=== PATIENT | female | born 1945 | race Caucasian/White ===

== ENCOUNTER 2019-09-29 13:31 | Outpatient (CLI) | payer MEDICARE, OTHER, SELFPAY ==
--- NOTE | 2019-09-29 13:45 | CT_ITS ---
WS: [id number] CTA THORACIC TECHNIQUE: Contrast enhanced CTA of the thoracic aorta with coronal and sagittal reformatted images a nd maximum intensity projection (MIP) images. CLINICAL INFORMATION: THORACIC AORTIC ANEURYSM COMPARISON: CTA 05/23/2018 and 10/01/2017 DLP: 1067.[address] scans at [facility] use at least one of these dose optimization techniques: automat ed exposure control; mA and/or kV adjustment per patient size (includes targeted exams where dose is matched to clinical indication); or iterative reconstruction. FINDINGS: Incidental bovine arch configuration. No evidence of thoracic aortic dissection. Again seen is the as cending thoracic aortic aneurysm measuring 4.6 x 4.8 cm AP by transverse unchanged. Aortic arch and d escending thoracic aorta are normal. Stable large esophageal hiatal hernia. Cardiomegaly. Adrenal glands are normal. Noncontrast spleen ap pears unremarkable. Fatty atrophy of the pancreas. Coronary calcification. No mediastinal or hilar ly mphadenopathy. A few small nodules in the thyroid unchanged. CT/CT angio chest [id number] IMPRESSION: 1. Stable ascending thoracic aortic aneurysm measuring 4.6 x 4.8 cm unchanged. 2. Stable cardiomegaly. 3. Large esophageal hiatal hernia is unchanged. 4. A few small nodules in the thyroid appear unchanged.
[2019-09-29 14:33] LABS: Blood Urea Nitrogen 19 mg/dL (8-23)
[2019-09-29] MEDS: iodixanol 320 mg/mL 100mL Btl IV ×2 (14:58→15:00)
== END 2019-09-29 13:32 | disposition home or self-care (01) ==
LOC: RAD 13:35
PROVIDERS: Family Provider Registered Nurse; Visit Provider Internal Medicine Cardiovascular Disease
DX: I71.2 Thoracic aortic aneurysm, without rupture (principal); I51.7 Cardiomegaly; K44.9 Diaphragmatic hernia without obstruction or gangrene; E04.1 Nontoxic single thyroid nodule
CPT/HCPCS: 71275; 82565; 84520

== ENCOUNTER 2021-08-12 14:15 | Emergency (ER) | payer MEDICARE, OTHER, SELFPAY ==
--- NOTE | 2021-08-12 14:25 | CTR_ITS ---
PROCEDURE INFORMATION: Exam: CT Head Without Contrast Exam date and time: 08/12/2021 4:10 PM Age: 76 years old Clinical indication: Syncope and collapse; Patient HX: Syncope episode; Additional info: AMS TECHNIQUE: Imaging protocol: Computed tomography of the head without contrast. Radiation optimization: All CT scans at this facility use at least one of these dose optimization techniques: automated exposure control; mA and/or kV adjustment per patient size (includes targeted exams where dose is matched to clinical indication); or iterative reconstruction. COMPARISON: No relevant prior studies available. RADIATION DOSE METRICS: Total DLP (mGy-cm): 762.51 FINDINGS: Brain: Mild diffuse white matter disease likely reflecting chronic microvascular ischemic changes. Bilateral basal ganglia punctate microcalcifications, nonspecific. Cerebral ventricles: No ventriculomegaly. Paranasal sinuses: Visualized sinuses are unremarkable. No fluid levels. Mastoid air cells: Visualized mastoid air cells are well aerated. Bones/joints: Unremarkable. No acute fracture. Soft tissues: Unremarkable. CT/CT head wo con* [id number] IMPRESSION: Mild diffuse white matter disease likely reflecting chronic microvascular ischemic changes.
--- NOTE | 2021-08-12 14:25 | XR_ITS ---
WS: [id number] Exam: XR chest 1V portable [id number] Date/Time of Exam: 08/12/2021 2:32 PM Reason For Exam: sycnope Comparison 10/01/2017. The lungs are clear and fully expanded. Mild cardiac enlargement unchanged. Prominent hiatal hernia. The superior mediastinum is mildly prominent but unchanged in appearance. This may be secondary to ro tation. Regional bony structures are intact. XR/XR chest 1V portable [id number] IMPRESSION: 1. No acute cardiopulmonary finding. 2. Mild cardiac enlargement and prominent hiatal hernia.
--- NOTE | 2021-08-12 14:26 | ECG_ITS ---
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 Measurements Intervals [place] Rate: 95 P: 76 [place]: 137 QRS: 38 QRSD: 86 T: 43 QT: 363 QTc: 457 Interpretive Statements SINUS RHYTHM WITH FREQUENT VENTRICULAR PREMATURE COMPLEXES MODERATE ST DEPRESSION [0.05+ mV ST DEPRESSION] Compared to ECG 10/01/2017 16:22:44 Ventricular premature complex(es) now present ST (T wave) deviation now present Atrial fibrillation no longer present T-wave abnormality no longer present Electronically Signed On 08-12-2021 23:28:46 CDT by Carlitos Rose M.D. [id number]
--- NOTE | 2021-08-12 14:26 | CTR_ITS ---
PROCEDURE INFORMATION: Exam: CT Angiography Head With Contrast, Arteriography Exam date and time: 08/12/2021 4:15 PM Age: 76 years old Clinical indication: Syncope and collapse TECHNIQUE: Imaging protocol: Computed tomography angiography of the head with contrast. Exam focused on the arteries. 3D rendering (Not supervised by radiologist): MIP and/or 3D reconstructed images were created by the technologist. Radiation optimization: All CT scans at this facility use at least one of these dose optimization techniques: automated exposure control; mA and/or kV adjustment per patient size (includes targeted exams where dose is matched to clinical indication); or iterative reconstruction. Contrast material: OMNI 350; Contrast volume: 95 ml; Contrast route: INTRAVENOUS (IV); COMPARISON: 1. CT head wo con* [id number] 08/12/2021 4:[address] angio chest [id number] 09/29/2019 2:38 PM RADIATION DOSE METRICS: Total DLP (mGy-cm): 2104.63 FINDINGS: ANTERIOR CIRCULATION: Right internal carotid artery: Unremarkable. Intracranial segment is patent with no significant stenosis. No aneurysm. Right middle cerebral artery: Unremarkable. No occlusion or significant stenosis. No aneurysm. Right anterior cerebral artery: Unremarkable. No occlusion or significant stenosis. No aneurysm. Left internal carotid artery: Unremarkable. Intracranial segment is patent with no significant stenosis. No aneurysm. Left middle cerebral artery: Unremarkable. No occlusion or significant stenosis. No aneurysm. Left anterior cerebral artery: Unremarkable. No occlusion or significant stenosis. No aneurysm. POSTERIOR CIRCULATION: Right vertebral artery: Unremarkable. No occlusion or significant stenosis. No aneurysm. Left vertebral artery: Unremarkable. No occlusion or significant stenosis. No aneurysm. Basilar artery: Unremarkable. No occlusion or significant stenosis. No aneurysm. Right posterior cerebral artery: Unremarkable. No occlusion or significant stenosis. No aneurysm. Left posterior cerebral artery: Unremarkable. No occlusion or significant stenosis. No aneurysm. PROCEDURE INFORMATION: Exam: CT Angiography Neck With Contrast Exam date and time: 08/12/2021 4:15 PM Age: 76 years old Clinical indication: Syncope and collapse TECHNIQUE: Imaging protocol: Computed tomography angiography of the neck with contrast. 3D rendering (Not supervised by radiologist): MIP and/or 3D reconstructed images were created by the technologist. Radiation optimization: All CT scans at this facility use at least one of these dose optimization techniques: automated exposure control; mA and/or kV adjustment per patient size (includes targeted exams where dose is matched to clinical indication); or iterative reconstruction. Contrast material: OMNI 350; Contrast volume: 95 ml; Contrast route: INTRAVENOUS (IV); COMPARISON: 1. CT head wo con* [id number] 08/12/2021 4:[address] angio chest [id number] 09/29/2019 2:38 PM RADIATION DOSE METRICS: Total DLP (mGy-cm): 2104.63 FINDINGS: Right common carotid artery: No stenosis. No dissection or occlusion. Right internal carotid artery: No stenosis of the extracranial segment. No dissection or occlusion. Right external carotid artery: No occlusion or stenosis of the origin. Left common carotid artery: No stenosis. No dissection or occlusion. Left internal carotid artery: No stenosis of the extracranial segment. No dissection or occlusion. Left external carotid artery: No occlusion or stenosis of the origin. Right vertebral artery: No stenosis. No dissection or occlusion. Left vertebral artery: No stenosis. No dissection or occlusion. Aorta: Atherosclerotic calcification of the aortic arch. Thyroid: Multiple nodules in the thyroid gland with the largest measuring 9 mm in the right thyroid lobe. Soft tissues: Normal. No significant soft tissue swelling. Bones/joints: There is multilevel uncovertebral and facet hypertrophy with neural foramina narrowing. CT/CT angio headneck* [id number] IMPRESSION: No large vessel stenosis or occlusion. IMPRESSION: No stenosis or occlusion of the neck arteries. COMMENTS: Consistent with the [place] [employer]'s Incidental Findings Committee white paper (J Am Vinay Radiol 2015): In patients aged 35 years and older with an incidental thyroid nodule equal to or greater than 1.[address], MRI or extrathyroidal US, further evaluation with dedicated thyroid US is recommended for patients with normal life expectancy and without comorbidities. For smaller nodules without suspicious features, no further evaluation or follow up is recommended. REFERENCES: NASCET CRITERIA. The degree of internal carotid artery stenosis is based on NASCET criteria. Normal is no stenosis. Mild is less than 50% stenosis. Moderate is 50-69% stenosis. Severe is 70% to 99% stenosis. Total occlusion is no detectable patent lumen.
[2021-08-12 14:29] VITALS: BP 204/77; PULSE 105; RESP 18; TEMP 36.9; O2SAT 96
--- NOTE | 2021-08-12 15:05 | W.ED.GENADLT ---
HPI - General Adult General: Chief complaint: Syncope Stated complaint: SYNCOPE Time Seen by Provider: 08/12/21 14:25 History of Present Illness: HPI: [76]yo patient w/ hx of atrial fibrillation s/p prior ablations, HTN presenting after an episode of syncope lasting for 1-2 minutes which occurred at 12:27pm. Patient was at the flower shop she began feeling hot and nauseous and lightheaded. Patient then lost LOC briefly for few seconds. The incident was witnessed by the patient?s sister who slowly relayed the patient the ground. Patient could not recall the incident but denies any post-ictal confusion, tongue biting or bladder/bowel incontinence. Patient denies any prior hx of syncope in the past. No associated symptoms of chest pain, shortness of breath, palpitations or focal weakness right before the incident. No family hx of sudden cardiac or unexplained . Patient denies any prior history of MIs or cardiac stents. Denies any stroke-like symptoms during the episode when this happened. Patient tells me that yesterday she has had loose stool after eating peas and thinks that she may be dehydrated. She follows with cardiology and another hospital. Onset: 2 hrs and 30 minutes ago Duration: once Location: [place] Severity: moderate Associated symptoms: Deny chest pain, dyspnea, nausea, rash, palpitations or vomiting Review of Systems Const: Denies: fever(s) or chills Eyes: Denies: change in vision ENMT: Denies: mouth pain Card: Denies: chest pain or palpitations Resp: Denies: dyspnea or non-productive cough GI: Denies: abdominal pain, nausea, vomiting or diarrhea : Denies: dysuria Musc: Denies: extremity pain Skin/Breast: Denies: rash or new lesions Neuro: Reports: other (+syncope); Denies: weakness in extremities Psych: Reports: other (Normal mood) Joo/Lymph: Denies: easy bruising PFSH ED PFSH: Medical History (Updated 08/12/21 @ 19:09 by Clyde Ni MD) Afib Chronic lumbar pain Essential hypertension Surgical History History of cardiac radiofrequency ablation History of knee surgery History of right hip replacement October 2018 Social History Smoking and tobacco status: never smoked Alcohol intake: never Physical Exam Const: COMMON NORMALS: alert HENMT: COMMON NORMALS: atraumatic HEAD & SCALP: atraumatic MOUTH: moist mucous membranes not abnormal Eye: COMMON NORMALS: EOMs intact bilaterally and conjunctivae normal CONJUNCTIVA: Yes conjunctivae normal Neck/C-Spine: COMMON NORMALS: full ROM and supple Resp: COMMON NORMALS: normal respiratory effort and clear to auscultation bilaterally AUSCULTATION: clear to auscultation bilaterally Cardio: OTHER: +Irregular irregular tachycardia GI: COMMON NORMALS: Soft to palpation and non-tender PALPATION: Yes Soft to palpation Extremity: COMMON NORMALS: full ROM Neuro: SENSORIUM/ORIENTATION: Yes alert MOTOR EXAM: No Abnormal motor strength present and Other motor observations present (no focal motor deficits) OTHER: Mental status? Awake, alert, and oriented to self, year, month, location, and situation.? Following simple axial and appendicular commands.? Has appropriate fund of knowledge, comprehension, and insight.? Able to recall and understands pertinent aspects of medical history and current treatment status.? ? Language? Speech is fluent without word-finding difficulties.? Intact naming, expression, corporate receptionist, and repetition.? ? Cranial nerves? 2,3,4,6: PERRL, EOMI with no nystagmus. 5: Intact sensation to light touch, symmetric? 7: Smile symmetrical, no facial droop.? 8: Hearing grossly intact.? 9,10: Normal palate movement.? 11: Normal strength in trapezius bilaterally 12: Tongue protrudes midline.? ? Motor examination? Normal bulk & tone. Strength as follows (R/L): Delts (5/5), Biceps (5/5), Triceps (5/5), Wrist ext (5/5), hip flexors (5/5), plantarflexors (5/5), dorsiflexors (5/5). ? Sensation? Light Touch: Grossly intact and equal in upper and lower extremities bilaterally? Romberg: Negative.? Distal joint position sense intact ? Coordination? Wdtvod-ss-suga-finger movements intact without dysmetria or past-pointing.? Rapid fingertaps: preserved amplitude without decriment.? No tremor, myoclonus or truncal ataxia.? ? Gait/stance? Steady, normal narrow base gait with appropriate arm swing and turning.? Tandem gait without hesitation or loss of balance. Psych: COMMON NORMALS: speech normal SPEECH: Yes normal speech MOOD & AFFECT: Yes euthymic mood Course Vital Signs: Vital signs: Vital Signs Temperature 98.4 F 08/12/21 14:29 Pulse Rate 84 08/12/21 15:15 Respiratory Rate 18 08/12/21 14:29 Blood Pressure 197/124 08/12/21 19:08 Pulse Oximetry 96 08/12/21 19:08 MDM - General Adult Medical Decision Making [76]yo patient w/ hx of HTN, afib s/p ablation presenting to the ED with Syncope. No association with chest pain, dyspnea, palpitations, or focal neurological deficits. HDS Neuro intact. Fingerstick wnl. Given history, exam and workup, presentation not consistent with seizures given a short time course, no postictal state, no seizure activity. Low suspicion for acute neurologic catastrophes to include ICH given lack of trauma, risk factors for bleeding diathesis, or neurogenic causes of syncope. Low suspicion for vascular catastrophes to include PE, thoracic aortic dissection, AAA rupture. Workup: EKG, CBC, CMP, Lipase, Troponin x 2, EKG x 2, CT head, CTA head/neck Intervention: Serial reevaluation, telemetry, PO challenge, IVF Findings: EKG: No e/o STEMI. No evidence of Brugada?s sign, delta wave, epsilon wave, significantly prolonged QTc, HOCM or malignant arrhythmia. Given age and comorbidities, performed shared decision making with patient would like to stay in the hospital for full cardiac evaluation for syncope. Patient still observed to have frequent PVCs. Atrial fibrillation. No signs of VT/Vfib. Disposition: admission Lab Data : 08/12/21 15:05 08/12/21 15:05 Radiology Impressions Chest X-Ray 08/12/21 14:25 IMPRESSION: 1. No acute cardiopulmonary finding. 2. Mild cardiac enlargement and prominent hiatal hernia. Head CT 08/12/21 14:25 IMPRESSION: Mild diffuse white matter disease likely reflecting chronic microvascular ischemic changes. Head/Neck CTA 08/12/21 14:26 IMPRESSION: No large vessel stenosis or occlusion. IMPRESSION: No stenosis or occlusion of the neck arteries. COMMENTS: Consistent with the [employer] [place] [employer]'s Incidental Findings Committee white paper (J Am Vinay Radiol 2015): In patients aged 35 years and older with an incidental thyroid nodule equal to or greater than 1.[address], MRI or extrathyroidal US, further evaluation with dedicated thyroid US is recommended for patients with normal life expectancy and without comorbidities. For smaller nodules without suspicious features, no further evaluation or follow up is recommended. REFERENCES: NASCET CRITERIA. The degree of internal carotid artery stenosis is based on NASCET criteria. Normal is no stenosis. Mild is less than 50% stenosis. Moderate is 50-69% stenosis. Severe is 70% to 99% stenosis. Total occlusion is no detectable patent lumen. Laboratory Results WBC 8.6 10^3/uL (4.0-10.0) 08/12/21 15:05 RBC 4.50 10^6/uL (4.1-5.3) 08/12/21 15:05 Hgb 13.3 g/dL (11.5-15.3) 08/12/21 15:05 Hct 40.7 % (37.0-47.0) 08/12/21 15:05 MCV 90.4 fl (81-99) 08/12/21 15:05 MCH 29.6 pg (28.0-34.0) 08/12/21 15:05 MCHC 32.7 g/dL (30.0-36.0) 08/12/21 15:05 RDW 13.2 % (12.1-15.1) 08/12/21 15:05 Plt Count 258 10^3/cmm (130-400) 08/12/21 15:05 MPV 11.7 fL (7.4-10.4) H 08/12/21 15:05 Neut % (Auto) 80.4 % 08/12/21 15:05 Lymph % (Auto) 11.9 % 08/12/21 15:05 Blanco % (Auto) 5.9 % 08/12/21 15:05 Eos % (Auto) 0.8 % 08/12/21 15:05 Baso % (Auto) 0.8 % 08/12/21 15:05 Neut # (Auto) 6.92 10^3/uL (1.8-7.7) 08/12/21 15:05 Lymph # (Auto) 1.0 10^3/uL (0.8-4.8) 08/12/21 15:05 [place]anco # (Auto) 0.5 10^3/uL (0.2-0.9) 08/12/21 15:05 Eos # (Auto) 0.1 10^3/uL (0.0-0.8) 08/12/21 15:05 Baso # (Auto) 0.1 10^3/uL (0.0-0.1) 08/12/21 15:05 Nucleated RBC % (auto) 0 % 08/12/21 15:05 Nucleated RBCs # 0.0 /100WBC 08/12/21 15:05 Sodium 135 mmol/L (136-145) L 08/12/21 15:05 Potassium 4.5 mmol/L (3.5-5.1) 08/12/21 15:05 Chloride 99 mmol/L (98-107) 08/12/21 15:05 Carbon Dioxide 24 mmol/L (22-29) 08/12/21 15:05 Anion Gap 16.5 (5-19) 08/12/21 15:05 BUN 21 mg/dL (8-23) 08/12/21 15:05 Creatinine 0.8 mg/dL (0.5-0.9) 08/12/21 15:05 GFR Calculation Not Reportable 08/12/21 15:05 Glucose 122 mg/dL (65-115) H 08/12/21 15:05 Calculated Osmolality 284 mOsm/kg (285-295) L 08/12/21 15:05 Calcium 8.6 mg/dL (8.5-10.5) 08/12/21 15:05 Magnesium 2.3 mg/dL (1.7-2.3) 08/12/21 15:05 Total Bilirubin 0.5 mg/dL (0.15-1.2) 08/12/21 15:05 AST 17 U/L (0-32) 08/12/21 15:05 ALT 12 U/L (0-33) 08/12/21 15:05 Alkaline Phosphatase 154 IU/L (35-105) H 08/12/21 15:05 Troponin T Baseline 11 ng/L (0-10) H 08/12/21 15:05 Troponin T 120 Minute 10.26 ng/L (0-10) H 08/12/21 17:08 Delta Troponin T -0.74 ABS# (0-10) L 08/12/21 17:08 Total Protein 7.4 g/dL (6.6-8.7) 08/12/21 15:05 Albumin 4.5 g/dL (3.5-5.2) 08/12/21 15:05 Globulin 2.9 g/dL (1.3-4.6) 08/12/21 15:05 Lipase 9 U/L (13-60) L 08/12/21 15:05 TSH 1.76 uIU/mL (0.27-4.20) 08/12/21 15:05 Urine Color Yellow (Yellow) 08/12/21 16:04 Urine Appearance Sl hazy (CLEAR) 08/12/21 16:04 Urine pH 5 (5-7) 08/12/21 16:04 Ur Specific [place] 1.015 (1.005-1.030) 08/12/21 16:04 Urine Protein Neg (Negative) 08/12/21 16:04 Urine Glucose (UA) Norm (Normal) 08/12/21 16:04 Urine Ketones Negative (Negative) 08/12/21 16:04 Urine Blood Neg (Negative) 08/12/21 16:04 Urine Nitrate Negative (Negative) 08/12/21 16:04 Urine Bilirubin Neg (Negative) 08/12/21 16:04 Urine Urobilinogen Norm mg/dL (Negative) 08/12/21 16:04 Ur Leukocyte Esterase 1+ (Negative) H 08/12/21 16:04 Urine RBC 0-4 /hpf (0-2) H 08/12/21 16:04 Urine WBC 5-10 /hpf (0-5) H 08/12/21 16:04 Ur Squamous Epith Cells 0-4 /hpf (0-5) H 08/12/21 16:04 Amorphous Sediment Not Reportable 08/12/21 16:04 Urine Bacteria Trace /hpf (NONE) 08/12/21 16:04 Discharge Plan Discharge Patient Disposition: Admitted As Inpatient Clinical Impression: Syncope and collapse Condition: Stable Discharge Diet: Advance as tolerated Discharge Activity: Increase activity as tolerated Coding Level of Care Code ED Instrument Operator for Chg Fwd Exam Comprehensive
[2021-08-12 15:15] VITALS: PULSE 84
[2021-08-12 15:22] LABS: Basophils # 0.1 10^3/uL (0.0-0.1); Basophils % 0.8 %; Eosinophils # 0.1 10^3/uL (0.0-0.8); Eosinophils % 0.8 %; Hematocrit 40.7 % (37.0-47.0); Hemoglobin 13.3 g/dL (11.5-15.3); Lymphocytes % 11.9 %; Mean Corpuscular HGB Conc 32.7 g/dL (30.0-36.0); Mean Corpuscular Hemoglobin 29.6 pg (28.0-34.0); Mean Corpuscular Volume 90.4 fl (81-99); Mean Platelet Volume 11.7 fL (7.4-10.4); Monocytes # 0.5 10^3/uL (0.2-0.9); Monocytes % 5.9 %; Neutrophils # 6.92 10^3/uL (1.8-7.7); Neutrophils % 80.4 %; Nucleated Red Blood Cells % 0 %; Platelet Count 258 10^3/cmm (130-400); Red Cell Distribution Width 13.2 % (12.1-15.1); White Blood Count 8.6 10^3/uL (4.0-10.0)
[2021-08-12 15:46] LABS: Alanine Aminotransferase 12 U/L (0-33); Albumin Level 4.5 g/dL (3.5-5.2); Alkaline Phosphatase 154 IU/L (35-105); Anion Gap 16.5 (5-19); Aspartate Amino Transferase 17 U/L (0-32); Blood Urea Nitrogen 21 mg/dL (8-23); Calcium 8.6 mg/dL (8.5-10.5); Carbon Dioxide 24 mmol/L (22-29); Chloride 99 mmol/L (98-107); Globulin 2.9 g/dL (1.3-4.6); Glucose 122 mg/dL (65-115); Lipase 9 U/L (13-60); Magnesium 2.3 mg/dL (1.7-2.3); Osmolality Calculated 284 mOsm/kg (285-295); Potassium 4.5 mmol/L (3.5-5.1); Sodium 135 mmol/L (136-145); Total Bilirubin 0.5 mg/dL (0.15-1.2); Total Protein 7.4 g/dL (6.6-8.7); Troponin(5th) Baseline 11 ng/L (0-10)
[2021-08-12] MEDS: iohexol 350 mg/mL 100 mL Btl IV (16:14)
--- NOTE | 2021-08-12 16:26 | ECG_ITS ---
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 Measurements Intervals [place] Rate: 91 P: 64 AL: 139 QRS: 32 QRSD: 79 T: 44 QT: 359 QTc: 443 Interpretive Statements SINUS RHYTHM Compared to ECG 08/12/2021 14:31:46 Ventricular premature complex(es) no longer present ST (T wave) deviation no longer present Electronically Signed On 08-12-2021 23:34:26 CDT by Carlitos Rose M.D. [id number]
[2021-08-12 17:13] LABS: Bilirubin Urine Neg (Negative); Blood Urine Neg (Negative); Glucose Urine UA Norm (Normal); Ketones Urine Negative (Negative); Nitrate Urine Negative (Negative); Protein Urine Neg (Negative); Specific Gravity, Urine 1.015 (1.005-1.030); Urine Appearance SL Hazy (CLEAR); Urine Color Yellow (Yellow); Urobilinogen Urine Norm (Negative); pH Urine 5 (5-7)
[2021-08-12 17:14] LABS: Add Urine Culture? No; Add Urine Microscopic? YES; Bacteria Urine TRACE /hpf; Leukocyte Esterase Urine 1+ (Negative); RBC Urine 0-4 /hpf (0-2); Squamous Epithelial Cell Urine 0-4 /hpf (0-5)
[2021-08-12 17:39] LABS: Troponin 5 2HR 10.26 ng/L (0-10)
[2021-08-12 17:44] LABS: Troponin 5 2HR Delta -0.74 ABS# (0-10)
[2021-08-12 19:08] VITALS: BP 197/124; O2SAT 96
--- NOTE | 2021-08-12 19:09 | PM.HP ---
Providers/Chief Complaint Admitting Physician: Zac Car MD Primary Care Provider: ABA Emery Chief Complaint: SYNCOPE History of Present Illness Teresa Cueva is a 76 year old female who has history of normal ventricular systolic function EF 60%, chronic atrial fibrillation, thoracic aortic aneurysm, anemia, diverticulosis, moderate mitral valve regurgitation presented after 1 syncopal event. Medications/Allergies Home Medications Medication Instructions Recorded Confirmed Last Taken Type ibuprofen 200 mg capsule 400 mg PO TID PRN cap 10/26/20 08/12/21 08/12/21 History losartan 25 mg tablet 25 mg PO DAILY 08/12/21 08/12/21 08/12/21 History Allergies Allergy/AdvReac Type Severity Reaction Status Date / Time diltiazem Allergy ADR-Dizzine Verified 08/12/21 17:10 ss dofetilide [From Tikosyn] Allergy nausea Verified 08/12/21 17:10 hydrocodone Allergy nausea Verified 08/12/21 17:10 metoprolol Allergy ADR-Dizzine Verified 08/12/21 17:10 ss oxycodone Allergy nausea Verified 08/12/21 17:10 promethazine [From Phenergan] Allergy ADR-Dizzine Verified 08/12/21 17:10 ss tramadol Allergy nausea Verified 08/12/21 17:10 PFSH Acute PFSH: Medical History (Updated 08/12/21 @ 19:09 by Clyde Ni MD) Afib Chronic lumbar pain Essential hypertension Surgical History History of cardiac radiofrequency ablation History of knee surgery History of right hip replacement October 2018 Social History Smoking and tobacco status: never smoked Alcohol intake: never Vitals/I&O/Wt Last Vital Signs Temp 98.4 F 08/12/21 14:29 Pulse 84 08/12/21 15:15 Resp 18 08/12/21 14:29 BP 204/77 08/12/21 14:29 Pulse Ox 96 08/12/21 14:29 Data : 08/12/21 15:05 08/12/21 15:05 A&P Assessment and plan (1) Syncope and collapse: Status: Acute Coding Level of Care Code Acute Position Description Manager for Chg Fwd Diagnoses Syncope and collapse R57
[2021-08-12 19:12] LABS: Thyroid Stimulating Hormone 1.76 uIU/mL (0.27-4.20)
--- NOTE | 2021-08-15 09:46 | DCPLANNER ---
Addendum entered by Machelle Gómez 08/16/21 08:28: manager business management called patient to give patient appointment information, patient informed director case management that she did not want this appointment due to seeing her heart care physician. manager business management notified [facility] to cancel this appointment. Original Note: manager business management had message to schedule a follow up appointment for patient with [facility]. manager business management sent patients information to the front office staff at [facility]. Patients information will be printed and reviewed. Clinic will call patient with appointment information.
== END 2021-08-12 20:12 | disposition admitted as inpatient to this hospital (09) ==
LOC: ER 18:04 → MEDSURG 18:50
PROVIDERS: Family Medicine; Emergency Provider Emergency Medicine; PCP Registered Nurse
DX: R55 Syncope and collapse (principal); I48.91 Unspecified atrial fibrillation; I10 Essential (primary) hypertension
CPT/HCPCS: 70450; 70496; 70498; 71045; 80053; 81001; 83690; 83735; 84443; 84484; 85025; 93005; 99284; Q9967

== ENCOUNTER 2021-08-31 12:10 | Outpatient (CLI) | payer MEDICARE, SELFPAY ==
--- NOTE | 2021-08-31 13:00 | MR_ITS ---
WS: [id number] MRI LUMBAR SPINE NONCONTRAST TECHNIQUE: Sagittal T1, T2 and STIR imaging. Axial T1 and T2 imaging. CLINICAL INFORMATION: M51.37 - Other intervertebral disc degeneration, lumbosac... COMPARISON: MRI FINDINGS: Mild lumbar curve. No acute compression. Slight anterolisthesis L2 on L3, L3 on L4 and L4 on L5. L1-L2: Normal. L2-L3: Slight anterolisthesis. Mild annular bulging. Mild facet arthropathy. Spinal canal and foramen are patent. L3-L4: Slight anterolisthesis. Slight disc bulging. Mild central canal stenosis. Moderate facet arthr opathy. Foramen are patent. L4-L5: Slight anterolisthesis L4 on L5. Mild disc bulging with slight impingement on the RIGHT subart icular recess and traversing RIGHT L5 nerve root. Mild central canal stenosis. This is progressed com pared to 2017. Moderate facet arthropathy. Mild RIGHT foraminal narrowing. LEFT foramen is patent. L5-S1: Disc desiccation. Spinal canal and foramen are patent. Mild facet arthropathy. Visualized pelvic bony structures: Normal. Paravertebral soft tissues: Normal. Moderate thoracic kyphosis. Incidental hemangiomas in the mid thoracic spine. MR/MR lumbar spine wo con* [id number] IMPRESSION: 1. Mild lumbar curve. No acute compression. Slight anterolisthesis L2 on L3, L 3 on L4 and L4 on L5. 2. Mild central canal stenosis L3-L4 due to disc bulging with facet arthropath y and slight anterolisthesis. 3. Disc bulging L4-L5 with impingement RIGHT subarticular recess and traversin g RIGHT L5 nerve root. Mild central canal stenosis. This is progressed compared to 2017. 4. Mild RIGHT foraminal narrowing L4-L5 with contact of the exiting RIGHT L4 n erve root. Recommend correlation for RIGHT L4 nerve root symptoms. 5. Mild facet arthropathy L3-L4 and moderate facet arthropathy L4-L5.
== END 2021-08-31 12:11 | disposition home or self-care (01) ==
LOC: RAD 12:13
PROVIDERS: PCP Registered Nurse; Visit Provider Registered Nurse
DX: M51.37 Other intervertebral disc degeneration, lumbosacral region (principal); G89.29 Other chronic pain; M54.50 Low back pain, unspecified; M51.16 Intervertebral disc disorders with radiculopathy, lumbar region; M47.896 Other spondylosis, lumbar region
CPT/HCPCS: 72148

== ENCOUNTER → 2021-09-28 13:50 | Outpatient (BNVA) | payer MEDICARE, SELFPAY | PROVIDERS: PCP Registered Nurse; Visit Provider Anesthesiology Pain Medicine | DX: G89.29 Other chronic pain (principal); M48.061 Spinal stenosis, lumbar region without neurogenic claudication; M51.37 Other intervertebral disc degeneration, lumbosacral region; M47.816 Spondylosis without myelopathy or radiculopathy, lumbar region; M79.604 Pain in right leg; M79.605 Pain in left leg | CPT/HCPCS: 99205 ==

== ENCOUNTER → 2021-10-19 13:30 | Outpatient (BNVA) | payer MEDICARE, SELFPAY | PROVIDERS: PCP Registered Nurse; Visit Provider Anesthesiology Pain Medicine | DX: G89.29 Other chronic pain (principal); M47.816 Spondylosis without myelopathy or radiculopathy, lumbar region | CPT/HCPCS: 64493; 64494; 64495; J3490 ==

== ENCOUNTER → 2021-11-02 13:26 | Outpatient (BNVA) | payer MEDICARE, SELFPAY | PROVIDERS: PCP Registered Nurse; Visit Provider Anesthesiology Pain Medicine | DX: G89.29 Other chronic pain (principal); M47.816 Spondylosis without myelopathy or radiculopathy, lumbar region | CPT/HCPCS: 64493; 64494; 64495; J3490 ==

== ENCOUNTER → 2021-11-16 08:57 | Outpatient (BNVA) | payer MEDICARE, SELFPAY | PROVIDERS: PCP Registered Nurse; Visit Provider Anesthesiology Pain Medicine | DX: M79.604 Pain in right leg (principal); M79.605 Pain in left leg; G89.29 Other chronic pain; M48.061 Spinal stenosis, lumbar region without neurogenic claudication; M51.37 Other intervertebral disc degeneration, lumbosacral region; M47.816 Spondylosis without myelopathy or radiculopathy, lumbar region | CPT/HCPCS: 99214 ==

== ENCOUNTER → 2021-12-05 12:28 | Outpatient (BNVA) | payer MEDICARE, SELFPAY | PROVIDERS: PCP Registered Nurse; Visit Provider Anesthesiology Pain Medicine | DX: G89.29 Other chronic pain (principal); M47.816 Spondylosis without myelopathy or radiculopathy, lumbar region | CPT/HCPCS: 64635; 64636; J1030 ==

== ENCOUNTER → 2021-12-19 11:49 | Outpatient (BNVA) | payer MEDICARE, SELFPAY | PROVIDERS: PCP Registered Nurse; Visit Provider Anesthesiology Pain Medicine | DX: G89.29 Other chronic pain (principal); M47.816 Spondylosis without myelopathy or radiculopathy, lumbar region; E11.9 Type 2 diabetes mellitus without complications | CPT/HCPCS: 36416; 64635; 64636; 82962; J1030 ==

== ENCOUNTER → 2022-01-03 10:20 | Outpatient (BNVA) | payer MEDICARE, SELFPAY | PROVIDERS: PCP Registered Nurse; Visit Provider Anesthesiology Pain Medicine | DX: G89.29 Other chronic pain (principal); M48.061 Spinal stenosis, lumbar region without neurogenic claudication; M51.37 Other intervertebral disc degeneration, lumbosacral region; M47.816 Spondylosis without myelopathy or radiculopathy, lumbar region; M79.604 Pain in right leg; M79.605 Pain in left leg | CPT/HCPCS: 99214 ==

== ENCOUNTER 2022-01-19 08:59 | Outpatient (CLI) | payer MEDICARE, SELFPAY ==
--- NOTE | 2022-01-19 09:09 | CT_ITS ---
WS: [id number] CTA THORACIC AORTA WITH AND WITHOUT CONTRAST. HISTORY: THORACIC AORTIC ANEURYSM TECHNIQUE: CT imaging of the thorax is performed with and without contrast. After noncontrast imaging is performed, CT angiogram is performed during injection of Omnipaque 350; 95 mL IV.. Sagittal and c oronal reconstructions, sagittal and coronal MIP imaging is submitted. All CT scans at [facility] use at least one of these dose optimization techniques: automated exposure control; mA and/or kV adjustment per patient size (includes targeted exams where dose is matched to clinical indication); or iterative reconstruction. DLP: 1124.90 mGy.cm COMPARISON: 09/29/2019 Good opacification of the thoracic aorta. Aneurysmal dilatation of the ascending aorta is stable. Max imum diameter is 4.6 x 4.8 cm. No significant increase in size of the dilatation. Dilatation returns to normal alignment of the arch and descending aorta. There is moderately calcified plaque within the wall and intimal thickening. No dissection. Origin of the great vessels from the aortic arch is nega tive for significant stenosis. Bovine arch formation. Mild plaque at the origins of the arteries. Pul monary artery size is mildly prominent. No filling defects. Rapid tapering of the pulmonary arteries suggesting pulmonary hypertension. Markedly enlarged heart. LEFT atrial enlargement with a diameter of 5.7 cm. No definite RIGHT heart s train. No pericardial or pleural effusions. No pulmonary mass or nodules. No mediastinal or hilar anupam nopathy. Very large hiatal hernia. Stomach is essentially intrathoracic. Visualized adrenal glands are negative. Atherosclerosis continues into the suprarenal aorta. Visualiz ed colon contains diverticula. No acute diverticulitis. Increased thoracic kyphosis with degenerative spondylitic changes in the thoracic spine. CT/CT angio chest [id number] IMPRESSION: 1. Stable ascending thoracic aortic aneurysm at 4.6 x 4.8 cm. No increase in s ize. No dissection. 2. Pulmonary hypertension with rapid tapering of the pulmonary arteries. 3. Markedly enlarged heart. 4. Large hiatal hernia.
[2022-01-19 10:01] LABS: Blood Urea Nitrogen 20 mg/dL (8-23)
[2022-01-19] MEDS: iohexol 350 mg/mL 100 mL Btl IV (10:16)
== END 2022-01-19 09:00 | disposition home or self-care (01) ==
LOC: RAD 08:59
PROVIDERS: PCP Registered Nurse; Visit Provider Internal Medicine Cardiovascular Disease
DX: I71.2 Thoracic aortic aneurysm, without rupture (principal); I27.20 Pulmonary hypertension, unspecified; K44.9 Diaphragmatic hernia without obstruction or gangrene; I51.7 Cardiomegaly
CPT/HCPCS: 71275; 82565; 84520

== ENCOUNTER → 2022-01-25 13:59 | Outpatient (BNVA) | payer MEDICARE, SELFPAY | PROVIDERS: PCP Registered Nurse; Visit Provider Podiatrist Foot & Ankle Surgery | DX: M20.11 Hallux valgus (acquired), right foot (principal); L84 Corns and callosities; M20.41 Other hammer toe(s) (acquired), right foot | CPT/HCPCS: 28010; 28011; 99204 ==

== ENCOUNTER → 2022-02-01 14:55 | Outpatient (BNVA) | payer MEDICARE, SELFPAY | PROVIDERS: PCP Registered Nurse; Visit Provider Podiatrist Foot & Ankle Surgery | DX: M20.41 Other hammer toe(s) (acquired), right foot (principal); M20.11 Hallux valgus (acquired), right foot; L84 Corns and callosities | CPT/HCPCS: 99024 ==

== ENCOUNTER → 2022-04-06 13:28 | Outpatient (BNVA) | payer MEDICARE, SELFPAY | PROVIDERS: PCP Registered Nurse; Visit Provider Nurse Practitioner | DX: N39.0 Urinary tract infection, site not specified (principal) | CPT/HCPCS: 87086 ==

== ENCOUNTER → 2022-05-01 15:36 | Outpatient (BNVA) | payer MEDICARE, SELFPAY | PROVIDERS: PCP Registered Nurse; Visit Provider Registered Nurse | DX: R39.9 Unspecified symptoms and signs involving the genitourinary system (principal) | CPT/HCPCS: 81000; 87077; 87086; 87184 ==

== ENCOUNTER → 2022-05-09 11:16 | Outpatient (BNVA) | payer MEDICARE, SELFPAY | PROVIDERS: PCP Registered Nurse; Visit Provider Registered Nurse | DX: A49.9 Bacterial infection, unspecified (principal); N39.0 Urinary tract infection, site not specified | CPT/HCPCS: 81000; 87077; 87086; 87184 ==

== ENCOUNTER → 2022-06-05 13:58 | Outpatient (BNVA) | payer MEDICARE, SELFPAY | PROVIDERS: PCP Registered Nurse; Visit Provider Registered Nurse | DX: Z09 Encounter for follow-up examination after completed treatment for conditions other than malignant neoplasm (principal); N39.0 Urinary tract infection, site not specified; Z95.0 Presence of cardiac pacemaker; I50.33 Acute on chronic diastolic (congestive) heart failure; J90 Pleural effusion, not elsewhere classified | CPT/HCPCS: 81000; 87077; 87086; 87184 ==

== ENCOUNTER → 2022-06-30 10:23 | Outpatient (BNVA) | payer MEDICARE, SELFPAY | PROVIDERS: PCP Registered Nurse; Visit Provider Registered Nurse | DX: R53.83 Other fatigue (principal); R31.9 Hematuria, unspecified; I44.2 Atrioventricular block, complete; E10.65 Type 1 diabetes mellitus with hyperglycemia; I10 Essential (primary) hypertension; R06.02 Shortness of breath | CPT/HCPCS: 80053; 81000; 83036; 85025; 87086 ==

== ENCOUNTER 2022-07-06 12:54 | Emergency (ER) | payer MEDICARE, SELFPAY ==
[2022-07-06 12:55] VITALS: BP 145/76; PULSE 63; RESP 22; TEMP 36.6; O2SAT 96; BMI 28.9
--- NOTE | 2022-07-06 13:15 | ECG_ITS ---
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
--- NOTE | 2022-07-06 13:18 | XRR_ITS ---
PROCEDURE INFORMATION: Exam: XR Chest Exam date and time: 07/06/2022 1:59 PM Age: 77 years old Clinical indication: Cough and dyspnea; Additional info: Dyspnea/cough TECHNIQUE: Imaging protocol: Radiologic exam of the chest. Views: 1 view. COMPARISON: CR XR chest 1V portable [id number] 08/12/2021 2:35 PM FINDINGS: Lungs: There is ill-defined opacity in the right lower lung. The right hemidiaphragm is obscured. The left lung is clear. Pleural spaces: There is no pleural effusion or pneumothorax. Heart/Mediastinum: Moderate enlargement of the cardiac silhouette is stable. There is increased gas distension of the stomach within a hiatal hernia. Bones/joints: Bones are unremarkable. XR/XR chest 1V portable [id number] IMPRESSION: 1. Hiatal hernia with increased gaseous distension of the intrathoracic portion of the stomach. 2. Opacity in the right lower lung consistent with compressive atelectasis due to hiatal hernia. Infection cannot be excluded.
--- NOTE | 2022-07-06 13:21 | ED_ITS ---
HPI - SOB/Dyspnea General: Chief Complaint: Shortness of Breath/Dyspnea Stated Complaint: sob/has pacemaker Time Seen by Provider: 07/06/22 13:15 Source: patient Mode of arrival: ambulatory History of Present Illness: HPI Narrative: 77-year-old female presents emergency room complaining of shortness of breath for the last 4 to 6 weeks. She has had some difficulty with congestive heart failure and cardiomyopathy she has a pacemaker in place she previously had an ablation. She has not been taking half-strength doses of her torsemide. She is concerned that there is a reaction to it she has some itching on the upper back. She has had some orthopnea and increased swelling of the legs no swelling of the face or tongue. No difficulty swallowing. MD elicited complaint: shortness of breath Pertinent past history: congestive heart failure Onset (ago): day(s) Timing: constant and progressively worsening Severity: mild Exacerbating factors: lying flat and exertion Relieving factors: rest and upright position Known history of: congestive heart failure Associated symptoms: Reports orthopnea; Deny abdominal pain, chest congestion, chest pain, cough, diaphoresis, dizziness, extremity pain, fever(s), hemoptysis, lightheadedness, myalgias, nausea, palpitations, paresthesias, polydipsia, polyuria, rash, sense of impending doom, syncope or vomiting Review of Systems Const: Denies: fever(s), chills, fatigue, malaise or diaphoresis ENMT: Denies: throat pain, ear or mastoid pain, nasal discharge or nasal congestion Card: Reports: edema, swelling of feet/ankles and orthopnea; Denies: chest pain, palpitations, irregular heart rhythm, lightheadedness or syncope Resp: Reports: dyspnea; Denies: productive cough, non-productive cough, wheezing, hemoptysis or chest congestion GI: Denies: abdominal pain, nausea or vomiting : Denies: flank pain, difficulty voiding, dysuria, urinary frequency or urinary urgency Musc: Denies: extremity pain Skin/Breast: Denies: rash or pruritus Neuro: Denies: dizziness Endo: Denies: polyuria or polydipsia PFS ED PFSH: Medical History Afib Chronic lumbar pain Essential hypertension Surgical History History of cardiac radiofrequency ablation History of knee surgery History of right hip replacement October 2018 Social History Smoking and tobacco status: never smoked Alcohol intake: never Physical Exam Const: GENERAL APPEARANCE: cooperative and comfortable ORIENTATION/CONSCIOUSNESS: Yes awake, Yes oriented to person, Yes oriented to place and Yes oriented to time HENMT: COMMON NORMALS: normocephalic, atraumatic and hearing grossly normal bilaterally HEAD & SCALP: normocephalic and atraumatic Resp: COMMON NORMALS: normal respiratory effort, No retractions, No use of accessory muscles and clear to auscultation bilaterally AUSCULTATION: clear to auscultation bilaterally Cardio: COMMON NORMALS: regular rate, regular rhythm and No murmurs present (Cardio) RATE: regular rate RHYTHM: regular rhythm HEART SOUNDS: Murmur heart sound present GI: COMMON NORMALS: Soft to palpation and No hepatosplenomegaly present AUSCULTATION: Yes normoactive bowel sounds PALPATION: Yes Soft to palpation, No Tenderness to palpation present (GI), No Guarding due to palpation present (GI) and Yes No hepatosplenomegaly present Extremity: COMMON NORMALS: normal to inspection, capillary refill normal and no calf tenderness GENERAL: Yes edema Neuro: SENSORIUM/ORIENTATION: Yes oriented to person, Yes oriented to place and Yes oriented to time Skin: COMMON NORMALS: no rashes or lesions noted GENERAL SKIN EXAM: no rashes or lesions noted Course Vital Signs: Vital signs: Vital Signs Temperature 97.9 F 07/06/22 12:55 Pulse Rate 94 07/06/22 16:30 Respiratory Rate 18 07/06/22 15:00 Blood Pressure 134/91 07/06/22 15:00 Pulse Oximetry 25 L 07/06/22 16:30 Oxygen Delivery Me thod 07/06/22 16:30 MDM - SOB/Dyspnea Medical Decision Making Diuresed in the ER. She is given Lasix IV. We did try to get old records and care chart over unable to get them. Clinically she is doing better oxygen sats remain good she was able to ambulate to the bathroom without significant short of breath we will discharge patient home encouraged her to take full dose of torsemide and follow-up with her doctor next week return if she has worsening p roblems. Medical Records I reviewed the patient's medical records. Lab Data I reviewed the patient's lab results. 07/06/22 14:14 07/06/22 14:14 Labs/Radiology: Radiology Impressions Chest X-Ray 07/06/22 13:18 IMPRESSION: 1. Hiatal hernia with increased gaseous distension of the intrathoracic portion of the stomach. 2. Opacity in the right lower lung consistent with compressive atelectasis due to hiatal hernia. Infection cannot be excluded. Laboratory Results WBC 7.7 10^3/uL (4.0-10.0) 07/06/22 14:14 RBC 3.84 10^6/uL (4.1-5.3) L 07/06/22 14:14 Hgb 8.7 g/dL (11.5-15.3) L 07/06/22 14:14 Hct 30.1 % (37.0-47.0) L 07/06/22 14:14 MCV 78.4 fl (81-99) L 07/06/22 14:14 MCH 22.7 pg (28.0-34.0) L 07/06/22 14:14 MCHC 28.9 g/dL (30.0-36.0) L 07/06/22 14:14 RDW 18.6 % (12.1-15.1) H 07/06/22 14:14 Plt Count 271 10^3/cmm (130-400) 07/06/22 14:14 MPV 11.4 fL (7.4-10.4) H 07/06/22 14:14 Neut % (Auto) 72.5 % 07/06/22 14:14 Lymph % (Auto) 17.2 % 07/06/22 14:14 [place] % (Auto) 8.6 % 07/06/22 14:14 Eos % (Auto) 0.5 % 07/06/22 14:14 Baso % (Auto) 0.9 % 07/06/22 14:14 Neut # (Auto) 5.58 10^3/uL (1.8-7.7) 07/06/22 14:14 Lymph # (Auto) 1.3 10^3/uL (0.8-4.8) 07/06/22 14:14 [place] # (Auto) 0.7 10^3/uL (0.2-0.9) 07/06/22 14:14 Eos # (Auto) 0.0 10^3/uL (0.0-0.8) 07/06/22 14:14 Baso # (Auto) 0.1 10^3/uL (0.0-0.1) 07/06/22 14:14 Nucleated RBC % (auto) 0 % 07/06/22 14:14 Nucleated RBCs # 0.0 /100WBC 07/06/22 14:14 Sodium 132 mmol/L (136-145) L 07/06/22 14:14 Potassium 3.9 mmol/L (3.5-5.1) 07/06/22 14:14 Chloride 93 mmol/L (98-107) L 07/06/22 14:14 Carbon Dioxide 24 mmol/L (22-29) 07/06/22 14:14 Anion Gap 18.9 (5-19) 07/06/22 14:14 BUN 33 mg/dL (8-23) H 07/06/22 14:14 Creatinine 1.8 mg/dL (0.5-0.9) H 07/06/22 14:14 GFR Calculation Not Reportable 07/06/22 14:14 Glucose 131 mg/dL (65-115) H 07/06/22 14:14 Calculated Osmolality 283 mOsm/kg (285-295) L 07/06/22 14:14 Calcium 8.3 mg/dL (8.5-10.5) L 07/06/22 14:14 Total Bilirubin 1.2 mg/dL (0.15-1.2) 07/06/22 14:14 AST 73 U/L (0-32) H 07/06/22 14:14 ALT 69 U/L (0-33) H 07/06/22 14:14 Alkaline Phosphatase 156 U/L (35-105) H 07/06/22 14:14 NT-Pro-B Natriuret Pep 6700 pg/mL (0-450) H 07/06/22 14:14 Total Protein 6.6 g/dL (6.6-8.7) 07/06/22 14:14 Albumin 3.7 g/dL (3.5-5.2) 07/06/22 14:14 Globulin 2.9 g/dL (1.3-4.6) 07/06/22 14:14 Urine Color Light yellow (Yellow) 07/06/22 13:57 Urine Appearance Clear (CLEAR) 07/06/22 13:57 Urine pH 6 (5-7) 07/06/22 13:57 Ur Specific Melvin 1.010 (1.005-1.030) 07/06/22 13:57 Urine Protein Neg (Negative) 07/06/22 13:57 Urine Glucose (UA) Norm (Normal) 07/06/22 13:57 Urine Ketones Negative (Negative) 07/06/22 13:57 Urine Blood Neg (Negative) 07/06/22 13:57 Urine Nitrate Negative (Negative) 07/06/22 13:57 Urine Bilirubin Neg (Negative) 07/06/22 13:57 Urine Urobilinogen Neg mg/dL (Negative) 07/06/22 13:57 Ur Leukocyte Esterase 1+ (Negative) H 07/06/22 13:57 Urine RBC 0-4 /hpf (0-2) H 07/06/22 13:57 Urine WBC Rare /hpf (0-5) 07/06/22 13:57 Ur Squamous Epith Cells 0-4 /hpf (0-5) H 07/06/22 13:57 Amorphous Sediment Not Reportable 07/06/22 13:57 Urine Bacteria None /hpf (NONE) 07/06/22 13:57 Discharge Plan Discharge Patient Disposition: Home Clinical Impression: Congestive heart failure (CHF) Condition: Stable Prescriptions: No Action torsemide 20 mg tablet 20 mg PO DAILY cefdinir 300 mg capsule 300 mg PO BID Qty: 14 0RF Rx Instructions: STRONGLY RECOMMEND PT GOES TO ER DUE TO HAVING SO MANY ALLERGIES TO MEDICAT ION AND WORSING SYMPTOMS Discharge Orders: Discharge ED (Routine); Ordered 07/06/22 Ordered By: Victor Hugo Weinberg Referrals: Monica Castro FNP [Primary Care Provider] - Discharge Diet: Usual diet Discharge Activity: Limit activity as instructed Patient Instructions: Opioid Safety, Pain Management Activity Restrictions/Additional Instructions: You are seen today for shortness of breath recommend you increase your diuretic to a full tablet of the furosemide daily for 5 days, and recheck with your doctor within the next 5 days. Return to the emergency room for further pr oblems. Coding Level of Care Code ED [place] [place] for Jorge Hawkins
[2022-07-06 14:18] LABS: Urine Color Light yellow (Yellow)
[2022-07-06 14:19] LABS: Add Urine Microscopic? YES; Bilirubin Urine Neg (Negative); Blood Urine Neg (Negative); Glucose Urine UA Norm (Normal); Ketones Urine Negative (Negative); Leukocyte Esterase Urine 1+ (Negative); Nitrate Urine Negative (Negative); Protein Urine Neg (Negative); Urine Appearance Clear (CLEAR); Urobilinogen Urine Neg (Negative); pH Urine 6 (5-7)
[2022-07-06 14:21] LABS: Add Urine Culture? No; RBC Urine 0-4 /hpf (0-2); Squamous Epithelial Cell Urine 0-4 /hpf (0-5); WBC Urine RARE /hpf (0-5)
[2022-07-06 14:28] LABS: Basophils # 0.1 10^3/uL (0.0-0.1); Basophils % 0.9 %; Eosinophils % 0.5 %; Hematocrit 30.1 % (37.0-47.0); Hemoglobin 8.7 g/dL (11.5-15.3); Lymphocytes # 1.3 10^3/uL (0.8-4.8); Lymphocytes % 17.2 %; Mean Corpuscular HGB Conc 28.9 g/dL (30.0-36.0); Mean Corpuscular Hemoglobin 22.7 pg (28.0-34.0); Mean Corpuscular Volume 78.4 fl (81-99); Mean Platelet Volume 11.4 fL (7.4-10.4); Monocytes # 0.7 10^3/uL (0.2-0.9); Monocytes % 8.6 %; Neutrophils # 5.58 10^3/uL (1.8-7.7); Neutrophils % 72.5 %; Nucleated Red Blood Cells % 0 %; Platelet Count 271 10^3/cmm (130-400); Red Blood Count 3.84 10^6/uL (4.1-5.3); Red Cell Distribution Width 18.6 % (12.1-15.1); White Blood Count 7.7 10^3/uL (4.0-10.0)
[2022-07-06 14:57] LABS: Alanine Aminotransferase 69 U/L (0-33); Albumin Level 3.7 g/dL (3.5-5.2); Alkaline Phosphatase 156 U/L (35-105); Anion Gap 18.9 (5-19); Aspartate Amino Transferase 73 U/L (0-32); Blood Urea Nitrogen 33 mg/dL (8-23); Calcium 8.3 mg/dL (8.5-10.5); Carbon Dioxide 24 mmol/L (22-29); Chloride 93 mmol/L (98-107); Globulin 2.9 g/dL (1.3-4.6); Glucose 131 mg/dL (65-115); NT Pro B Type Natriuretic Pept 6700 pg/mL (0-450); Osmolality Calculated 283 mOsm/kg (285-295); Potassium 3.9 mmol/L (3.5-5.1); Sodium 132 mmol/L (136-145); Total Bilirubin 1.2 mg/dL (0.15-1.2); Total Protein 6.6 g/dL (6.6-8.7)
[2022-07-06 15:00] VITALS: BP 134/91; PULSE 67; RESP 18; O2SAT 95
[2022-07-06 15:26] VITALS: O2SAT 97; O2SAT 98
[2022-07-06] MEDS: FUROsemide 10 mg/mL SDV 4mL 40 MG IVP (16:10)
[2022-07-06 16:30] VITALS: PULSE 94; O2SAT 25
== END 2022-07-06 18:11 | disposition home or self-care (01) ==
PROVIDERS: Emergency Provider Family Medicine; PCP Registered Nurse
DX: I11.0 Hypertensive heart disease with heart failure (principal); I50.9 Heart failure, unspecified; I42.9 Cardiomyopathy, unspecified; Z95.0 Presence of cardiac pacemaker
CPT/HCPCS: 71045; 80053; 81001; 83880; 85025; 93005; 96374; 99285; J1940

== ENCOUNTER → 2022-07-20 10:42 | Outpatient (BNVA) | payer MEDICARE, SELFPAY | PROVIDERS: PCP Registered Nurse; Visit Provider Registered Nurse | DX: I48.91 Unspecified atrial fibrillation (principal); J96.11 Chronic respiratory failure with hypoxia; N39.0 Urinary tract infection, site not specified | CPT/HCPCS: 80053; 81000; 87086 ==

== ENCOUNTER → 2022-08-23 14:47 | Outpatient (BNVA) | payer MEDICARE, SELFPAY | PROVIDERS: PCP Registered Nurse; Visit Provider Registered Nurse | DX: I10 Essential (primary) hypertension (principal); I48.91 Unspecified atrial fibrillation; N39.0 Urinary tract infection, site not specified; Z09 Encounter for follow-up examination after completed treatment for conditions other than malignant neoplasm; I50.41 Acute combined systolic (congestive) and diastolic (congestive) heart failure; K26.9 Duodenal ulcer, unspecified as acute or chronic, without hemorrhage or perforation; R19.7 Diarrhea, unspecified | CPT/HCPCS: 80053; 81000; 83880; 87077; 87086; 87184 ==

== ENCOUNTER → 2022-10-10 13:38 | Outpatient (BNVA) | payer MEDICARE, SELFPAY | PROVIDERS: PCP Registered Nurse; Visit Provider Registered Nurse | DX: R39.9 Unspecified symptoms and signs involving the genitourinary system (principal); N39.0 Urinary tract infection, site not specified; N81.10 Cystocele, unspecified; N18.30 Chronic kidney disease, stage 3 unspecified; Z09 Encounter for follow-up examination after completed treatment for conditions other than malignant neoplasm; I72.4 Aneurysm of artery of lower extremity | CPT/HCPCS: 80048; 81000; 85014; 85018; 87077; 87086; 87184 ==

== ENCOUNTER → 2022-10-23 12:58 | Outpatient (BNVA) | payer MEDICARE, SELFPAY | PROVIDERS: PCP Registered Nurse; Visit Provider Registered Nurse | DX: N39.0 Urinary tract infection, site not specified (principal); N81.10 Cystocele, unspecified | CPT/HCPCS: 81000; 87086 ==

== ENCOUNTER 2023-01-09 17:51 | Observation (INO) | payer MEDICARE, SELFPAY ==
[2023-01-04 10:39] VITALS: BMI 25.5
--- NOTE | 2023-01-04 11:12 | P.ANESASSM_ITS ---
Pre-Anesthetic Assessment Height/Weight: Height 1.75 m Weight 78.471 kg Operation Date: 01/09/23 07:00 Proposed Procedures p Lefort partial colpocleisis 80667,N81.3(Left) - Pro Inman MD Familial anesthetic complications: PONV Was Beta Tiago taken within 24 hours: Yes Was Clonidine taken within 24 hours: N/A Social No alcohol and No tobacco Exam alert, oriented x 3, clear to auscultation bilaterally and regular rate & rhythm Airway Submandibular: within normal limits Cervical ROM: within normal limits Mallampati: Class II Dentition: false (upper) CV/HEM Atrial Fibrillation, Arrythmia, Congestive Heart Failure and Hypertension Leadless pacemaker Chronic Renal Insufficiency Musc/skel Lower Back Pain and Osteoarthritis/DJD Anesthetic Plan ASA status: 3 Anesthesia: General (TIVA) Medications/Allergies Home Medications Medication Instructions Recorded Confirmed Last Taken Type furosemide 20 mg tablet 20 mg PO DAILY 08/23/22 01/04/23 01/04/23 History metoprolol succinate 25 mg 12.5 mg PO BEDTIME 08/23/22 01/04/23 01/03/23 History tablet,extended release 24 hr sacubitril 24 mg-valsartan 26 mg 1 tab PO BID 08/23/22 01/04/23 01/04/23 History tablet (Entresto) clopidogrel 75 mg tablet (Plavix) 75 mg PO DAILY 90 days #90 tabs 10/10/22 01/04/23 12/30/22 Rx nitrofurantoin 100 mg PO BID 30 days #60 caps 10/13/22 01/04/23 Unknown Rx monohydrate/macrocrystals 100 mg capsule (Macrobid) Allergies Allergy/AdvReac Type Severity Reaction Status Date / Time amoxicillin Allergy Unknown Verified 01/01/23 12:23 ampicillin Allergy Unknown Verified 01/01/23 12:23 ciprofloxacin [From Cipro] Allergy Unknown Verified 01/01/23 12:23 diltiazem Allergy ADR-Dizzine Verified 01/01/23 12:23 ss dofetilide [From Tikosyn] Allergy nausea Verified 01/01/23 12:23 hydrocodone Allergy nausea Verified 01/01/23 12:23 oxycodone Allergy nausea Verified 01/01/23 12:23 Penicillins Allergy Unknown Verified 01/01/23 12:23 promethazine [From Phenergan] Allergy ADR-Dizzine Verified 01/01/23 12:23 ss sulfamethoxazole Allergy Unknown Verified 01/01/23 12:23 [From Bactrim] tramadol Allergy nausea Verified 01/01/23 12:23 trimethoprim [From Bactrim] Allergy Unknown Verified 01/01/23 12:23 amiodarone Allergy unk Uncoded 01/01/23 12:23 [facility] Anesthesia Medical History Acute combined systolic (congestive) and diastolic (congestive) heart failure Afib Chronic lumbar pain Chronic renal failure, stage 3b Chronic urticaria Essential hypertension History of cardiac pacemaker VVIR leadless pacemaker Mitral regurgitation Pseudoaneurysm of right femoral artery Pulmonary hypertension moderate per echo Tricuspid regurgitation severe via echo Surgical History History of cardiac radiofrequency ablation History of knee surgery History of right hip replacement October 2018 Social History Smoking and tobacco status: never smoked Alcohol intake: never Substance/Drug Use: never Adopted: No Caregiver/support person: No Lives independently: No Household members: family service: No Current occupational status: retired Do you think of yourself as: Straight/Heterosexual Current gender identity: Female Data Anesthesia Cardiac Studies: No Data to Display
[2023-01-09] VITALS (32 sets, daily range): BP systolic 85–169; BP diastolic 45–112; PULSE 70–130; RESP 16–30; TEMP 36.1–36.8; O2SAT 92–100; BMI 25.5
[2023-01-09] MEDS: sodium chloride 0.9% 1,000 ML 30 ML IV (09:12)
[2023-01-09] MEDS: scopolamine 1.5 Patch 1 PATCH TRANSDERMA (09:13)
[2023-01-09] MEDS: enoxaparin 40 mg/0.4 mL Syringe SUBCUT (09:24)
--- NOTE | 2023-01-09 09:32 | W.PM.OPSUD ---
Surgery/Procedure H&P Update DATE OF PROCEDURE: January 09, 2023 DATE H&P PERFORMED: 01/01/23 H&P UPDATE INFORMATION: I have reviewed H&P completed within last 30 days, I have examined patient prior to procedure and No changes to prior documentation PREOP DIAGNOSIS: Complete uterine prolapse PLANNED PROCEDURE: Operation Date: 01/09/23 10:15 Proposed Procedures p Lefort partial colpocleisis 46682,N81.3(Left) - Pro Inman MD
--- NOTE | 2023-01-09 09:34 | P.ANESUD_ITS ---
Pre-Anesthetic Update Pre-Anesthetic Assessment: Date of Surgery/Procedure: 01/09/23 Preop Kelsey gnosis: Complete uterine prolapse Proposed Procedure: Operation Date: 01/09/23 10:15 Proposed Procedures p Lefort partial colpocleisis 59042,N81.3(Left) - Pro Inman MD Any changes to Pre-Anesthetic Assessment?: No Last Intake: Intake Last Liquid Date 01/08/23 Last Liquid Time 19:00 Last Solid Date 01/08/23 Last Solid Time 17:00 Vitals: Temperature 97 F L 01/09/23 08:45 Temperature Source Temporal Artery S can 01/09/23 08:45 Pulse Rate 130 H 01/09/23 08:45 Respiratory Rate 18 01/09/23 08:45 Blood Pressure 155/103 01/09/23 09:13 Blood Pressure Tere n 120 01/09/23 08:45 Pulse Oximetry 99 01/09/23 08:45 Oxygen Delivery Me thod Room Air 01/09/23 08:50 Exam: Pre-Anes Outpt Exam: alert, oriented x 3, clear to auscultation bilaterally and regular rate & rhythm Cardiac Studies: No Data to Display
--- NOTE | 2023-01-09 09:43 | ECG_ITS ---
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 Measurements Intervals [place] Rate: 74 P: 0 [place]: 0 QRS: -52 QRSD: 161 T: 77 QT: 442 QTc: 492 Interpretive Statements ELECTRONIC VENTRICULAR PACEMAKER Compared to ECG 07/06/2022 13:15:02 No significant changes Electronically Signed On 01-09-2023 16:45:18 CDT by Deepak Hinson M.D. [id number]
[2023-01-09] MEDS: ondansetron 2 mg/ML SDV 2 mL 4 MG IVP (09:49)
[2023-01-09 09:51] LABS: Basophils # 0.1 10^3/uL (0.0-0.1); Basophils % 1.6 %; Eosinophils # 0.1 10^3/uL (0.0-0.8); Eosinophils % 1.1 %; Hematocrit 37.4 % (36-47); Lymphocytes # 1.1 10^3/uL (0.8-4.8); Lymphocytes % 25.2 %; Mean Platelet Volume 11.5 fL (7.4-10.4); Monocytes # 0.3 10^3/uL (0.2-0.9); Monocytes % 6.9 %; Neutrophils # 2.92 10^3/uL (1.8-7.7); Nucleated Red Blood Cells % 0 %; Platelet Count 228 10^3/cmm (157-399); Red Cell Distribution Width 16.1 % (12.1-15.1); White Blood Count 4.49 10^3/uL (3.29-11.43)
--- NOTE | 2023-01-09 10:00 | PC.NURSE ---
Midline placed to right basilic vein. Referred to PICC nurse for midline placement due to poor peripheral access and small IV for surgery. Pt to stay overnight in hospital following surgery. Right arm assessed with basilic vein measuring 3.6 mm, straight, and apparent best choice for placement. Using sterile technique and MST, right basilic vein accessed x 1 stick. Mid-arm circumference measured 10 cm from right AC 33 cm with 0 cm external length noted. Trimmed length 10 cm terminating at axilla. Line secured with stat-lock. Insertion site covered with Biopatch and TSM. Report given to OPS nurseJessica.
[2023-01-09 10:04] LABS: Alanine Aminotransferase 10 U/L (0-33); Alkaline Phosphatase 106 U/L (35-105); Anion Gap 15.5 (5-19); Aspartate Amino Transferase 15 U/L (0-32); Blood Urea Nitrogen 24 mg/dL (8-23); Calcium 8.8 mg/dL (8.5-10.5); Carbon Dioxide 24 mmol/L (22-29); Chloride 103 mmol/L (98-107); Globulin 2.9 g/dL (1.3-4.6); Glucose 104 mg/dL (65-115); Osmolality Calculated 290 mOsm/kg (285-295); Potassium 4.5 mmol/L (3.5-5.1); Sodium 138 mmol/L (136-145); Total Bilirubin 0.6 mg/dL (0.15-1.2); Total Protein 6.9 g/dL (6.6-8.7)
[2023-01-09 11:18] LABS: Bilirubin Urine Neg (Negative); Blood Urine 2+ (Negative); Glucose Urine UA Norm (Normal); Ketones Urine Negative (Negative); Nitrate Urine Positive (Negative); Protein Urine Neg (Negative); Specific Gravity, Urine 1.015 (1.005-1.030); Urine Appearance Hazy (CLEAR); Urine Color Yellow (Yellow); pH Urine 5 (5-7)
[2023-01-09 11:19] LABS: Add Urine Microscopic? YES; Leukocyte Esterase Urine Trace (Negative); Urobilinogen Urine Norm (Negative)
[2023-01-09 11:30] LABS: Bacteria Urine TRACE /hpf; RBC Urine 0-4 /hpf (0-2)
[2023-01-09 11:31] LABS: Add Urine Culture? Yes
[2023-01-09] MEDS: vancomycin 1,000 MG in sodium chloride 0.9% 250 ML 250 MG IV (12:42)
[2023-01-09] MEDS: lidocaine-epi 2% 20 mL INJ INJECTION ×2 (12:56→13:06)
--- NOTE | 2023-01-09 14:50 | P.OP_ITS ---
Operative Report Date of procedure: January 09, 2023 Pre-op diagnosis: Complete uterine prolapse Post-op diagnosis: Same Procedure done: LeFort partial colpocleisis Surgeon: Pro Inman MD Estimated blood loss (mL): 50 Procedure: After obtaining informed consent, the patient was taken to the operating room and placed in the supine position, given general anesthesia, and prepped and draped in sterile fashion. The abdomen, vulva and vagina were prepped and draped in a sterile manner. A time out procedure was performed. A hsu catheter was placed. Then the cervix grasped and place on traction with tenaculum to karen the vagina. The vaginal mucosa was injected with 2% lidocaine with 1:200,000 epinephrine, just below the vaginal epithelium. Using a marking pen to gayle out the rectangular areas of the vaginal epithelium that are to be removed anteri susan and posteriorly. Extended the anterior rectangle from approximately 2 cm from the tip of the cervix to 4 or 5 cm below the external urethral meatus. Incise the previously marked areas and utilized sharp dissection to remove the vaginal epithelium from both the anterior and posterior vaginal vaughn insuring hemostasis. The lateral vaginal mucosa cut edges of the anterior and posterior vaginal vaughn and over the cervix were saw together with interrupted delayed absorbable sutures. The uterus and vaginal apex were turned gradually inward and the superior and inferior margins of the rectangle were saw together in a running lock fashion with delayed absorbable sutures. Then a perineorrhaphy was was performed. Then a single incision midurethral sling was performed. The anterior vaginal mucosa beneath the midurethra was infiltrated with 2% lidocaine with epinephrine. A vertical midline incision was made beneath the midurethra, nearly 1.5 cm length. Careful submucosal dissection was performed bilaterally up to the interior portion of the inferior pubic ramus. The insertion of adductor longus tendon on the patient?s pubic ramus was identified as reference land gayle. Palpated the notch along the internal edge of ischiopubic ramus where the adductor longus tendon and the inferior pubic ramus meet. The Altis single incision sling (SIS) was selected. Then the needle of the SIS inserted aiming at the location of this notch. One of the integrated self- fixating tips place onto the needle by sliding it over the end of the needle. The needle/sling assembly was inserted toward the location of identified reference notch making sure that the flat of the handle is perpendicular to the desired path. The needle was tracked along the posterior surface of the ischiopubic ramus until the midline gayle on the mesh is approximately at the midline position under the urethra. The needle was removed and the same was repeated on the contralateral side until the appropriate sling tension under the urethra was achieved ensuring that the mesh lays flat. The needle was removed and vaginal incision was closed in a running interlocking fashion with 2-0 Vicryl. Then the Hsu catheter was removed and cystoscope was inserted. The bladder was filled with sterile water. Complete evaluation of the bladder mucosa was performed noting no lacerations, dimpling, tears, bleeding of the mucosa or mu scular layers. Both ureteral orifices were identified. Prompt excretion of urine from both ureteral orifices was noted. Cystoscope was withdrawn. The Hsu catheter was replaced. Excellent hemostasis was obtained. A vaginal pack is placed overnight as postoperative support for the vaginal tissues after graft placement and closure of vaginal incisions. Sponge, lap, needle, and instrument counts were correct times three. The patient was taken to the recovery room, awake and in stable condition.
[2023-01-09] MEDS: labetalol 5 mg/mL SDV 20mL 100 MG (15:40)
--- NOTE | 2023-01-09 15:49 | ECG_ITS ---
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 Measurements Intervals [place] Rate: 116 P: 87 IN: 246 QRS: -52 QRSD: 164 T: 92 QT: 396 QTc: 551 Interpretive Statements ELECTRONIC VENTRICULAR PACEMAKER Compared to ECG 01/09/2023 09:43:28 No significant changes Electronically Signed On 01-09-2023 16:34:56 CDT by Deepak Hinson M.D. [id number]
[2023-01-09] MEDS: labetalol 5 mg/mL SDV 20mL IVP (15:51)
--- NOTE | 2023-01-09 16:52 | PC.NURSE ---
1635 - verified per Jolly RN chimney construction supervisor and CLARISSA Mezasupervisor production department that med surg bed is currently unavailable - pt taken to pre op bay 8 to CLARISSA Lorenzo to await bed - daughter updated per this nurse
[2023-01-09] MEDS: metoprolol succinate ER (24 HR) 25 mg Tablet 12.5 MG PO (17:31)
[2023-01-09] MEDS: sacubitril/valsartan 24-26 mg Tablet 1 EACH PO (18:56)
[2023-01-09] MEDS: docusate sodium 100 mg Capsule PO (18:56)
[2023-01-09] MEDS: ketorolac 30 mg/mL INJ IVP ×2 (18:57→23:34)
--- NOTE | 2023-01-09 21:20 | PC.NURSE ---
at 2100 pt was noted to have a pad moderately covered, but not saturated in blood. New pad changed out at this time.
[2023-01-09] MEDS: morphine 4 mg/mL SDV 1 mL 1 MG IVP (21:33)
[2023-01-10 00:56] VITALS: BP 94/54; PULSE 73; RESP 17; O2SAT 94
--- NOTE | 2023-01-10 03:01 | PC.NURSE ---
0300; small amount of blood on pad; replaced with fresh one.
[2023-01-10 03:13] VITALS: RESP 16
[2023-01-10] MEDS: morphine 4 mg/mL SDV 1 mL 1 MG IVP (03:13)
[2023-01-10 04:56] VITALS: BP 95/56; PULSE 82; RESP 16; TEMP 36.7; O2SAT 92
[2023-01-10] MEDS: ketorolac 30 mg/mL INJ IVP ×2 (05:24→11:16)
[2023-01-10 05:51] LABS: Hematocrit 28.7 % (36-47); Mean Corpuscular HGB Conc 30.7 g/dL (30-55); Mean Corpuscular Hemoglobin 27.6 pg (27-33); Mean Platelet Volume 11.8 fL (7.4-10.4); Platelet Count 191 10^3/cmm (157-399); Red Blood Count 3.19 10^6/uL (3.85-5.65); Red Cell Distribution Width 16.2 % (12.1-15.1); White Blood Count 9.24 10^3/uL (3.29-11.43)
[2023-01-10 07:24] VITALS: BP 95/60; PULSE 85; RESP 17; TEMP 36.6; O2SAT 93
[2023-01-10] MEDS: docusate sodium 100 mg Capsule PO (09:00)
[2023-01-10] MEDS: clopidogrel 75 mg Tablet PO (09:00)
[2023-01-10] MEDS: FUROsemide 20 mg Tablet PO (09:00)
[2023-01-10] MEDS: sacubitril/valsartan 24-26 mg Tablet 1 EACH PO (09:00)
--- NOTE | 2023-01-10 09:24 | PM.OBGYDC ---
Discharge Providers PRODUCTION LINE TECHNICIAN Date of Admission: 01/09/23 17:51 Date of Discharge: 01/10/23 Attending Provider at Admission: Pro Inman MD Attending Provider at Discharge: Pro Inman MD Primary Care Provider: ABA Emery Reason for Visit Reason for Visit: N81.3 Hospital Course Hospital Course Mrs. Cueva 78-year-old female with total uterine prolapse was admitted for LeFort colpocleisis. The procedure was performed without complication. Overnight observation uneventful. Patient tolerating diet well. She is afebrile and hemodynamically stable postoperative day 1. She was counseled regarding precautions on heavy lifting and pelvic rest for 6 weeks (no sex, no tampons, no vaginal douches). Return to the emergency room if any fever, increased bleeding or pain. Physical Exam Narrative: GA: Alert and oriented ?3. HEENT: WNL. Heart: Regular rate and rhythm. Lungs: Clear to auscultation bilaterally. Abdomen: Bowel sounds present, nontender OFFICE MOVER: spotting bleeding. Extremities: No edema, no cyanosis, no calves pain. Urinary Catheter Management: Hsu: Cath Placed During This Visit: yes Urinary Catheter Date of Insertion: 01/09/23 Urinary Catheter Time of Insertion: 12:40 History History History 2 Term 2 0 Miscarriages/Ectopic 0 Living Children 2 Discharge Data Studies Completed and Pending Pending at discharge Category Date Time Status Urine Culture Routine Lab 01/09/23 10:22 Received Laboratory Results WBC 9.24 10^3/uL (3.29-11.43) 01/10/23 05:44 RBC 3.19 10^6/uL (3.85-5.65) L 01/10/23 05:44 Hgb 8.80 g/dL (11.27-16.99) L 01/10/23 05:44 Hct 28.7 % (36-47) L 01/10/23 05:44 MCV 90.0 fl (85-98) 01/10/23 05:44 MCH 27.6 pg (27-33) 01/10/23 05:44 MCHC 30.7 g/dL (30-55) 01/10/23 05:44 RDW 16.2 % (12.1-15.1) H 01/10/23 05:44 Plt Count 191 10^3/cmm (157-399) 01/10/23 05:44 MPV 11.8 fL (7.4-10.4) H 01/10/23 05:44 Neut % (Auto) 65.0 % 01/09/23 09:17 Lymph % (Auto) 25.2 % 01/09/23 09:17 [place] % (Auto) 6.9 % 01/09/23 09:17 Eos % (Auto) 1.1 % 01/09/23 09:17 Baso % (Auto) 1.6 % 01/09/23 09:17 Neut # (Auto) 2.92 10^3/uL (1.8-7.7) 01/09/23 09:17 Lymph # (Auto) 1.1 10^3/uL (0.8-4.8) 01/09/23 09:17 [place] # (Auto) 0.3 10^3/uL (0.2-0.9) 01/09/23 09:17 Eos # (Auto) 0.1 10^3/uL (0.0-0.8) 01/09/23 09:17 Baso # (Auto) 0.1 10^3/uL (0.0-0.1) 01/09/23 09:17 Nucleated RBC % (auto) 0 % 01/09/23 09:17 Nucleated RBCs # 0.0 /100WBC 01/09/23 09:17 Sodium 138 mmol/L (136-145) 01/09/23 09:16 Potassium 4.5 mmol/L (3.5-5.1) 01/09/23 09:16 Chloride 103 mmol/L (98-107) 01/09/23 09:16 Carbon Dioxide 24 mmol/L (22-29) 01/09/23 09:16 Anion Gap 15.5 (5-19) 01/09/23 09:16 BUN 24 mg/dL (8-23) H 01/09/23 09:16 Creatinine 1.5 mg/dL (0.5-0.9) H 01/09/23 09:16 GFR Calculation Not Reportable 01/09/23 09:16 Glucose 104 mg/dL (65-115) 01/09/23 09:16 Calculated Osmolality 290 mOsm/kg (285-295) 01/09/23 09:16 Calcium 8.8 mg/dL (8.5-10.5) 01/09/23 09:16 Total Bilirubin 0.6 mg/dL (0.15-1.2) 01/09/23 09:16 AST 15 U/L (0-32) 01/09/23 09:16 ALT 10 U/L (0-33) 01/09/23 09:16 Alkaline Phosphatase 106 U/L (35-105) H 01/09/23 09:16 Total Protein 6.9 g/dL (6.6-8.7) 01/09/23 09:16 Albumin 4.0 g/dL (3.5-5.2) 01/09/23 09:16 Globulin 2.9 g/dL (1.3-4.6) 01/09/23 09:16 Urine Color Yellow (Yellow) 01/09/23 10:22 Urine Appearance Hazy (CLEAR) A 01/09/23 10:22 Urine pH 5 (5-7) 01/09/23 10:22 Ur Specific [place] 1.015 (1.005-1.030) 01/09/23 10:22 Urine Protein Neg (Negative) 01/09/23 10:22 Urine Glucose (UA) Norm (Normal) 01/09/23 10:22 Urine Ketones Negative (Negative) 01/09/23 10:22 Urine Blood 2+ (Negative) H 01/09/23 10:22 Urine Nitrate Positive (Negative) H 01/09/23 10:22 Urine Bilirubin Neg (Negative) 01/09/23 10:22 Urine Urobilinogen Norm mg/dL (Negative) 01/09/23 10:22 Ur Leukocyte Esterase Trace (Negative) H 01/09/23 10:22 Urine RBC 0-4 /hpf (0-2) H 01/09/23 10:22 Urine WBC 5-10 /hpf (0-5) H 01/09/23 10:22 Ur Squamous Epith Cells 5-10 /hpf (0-5) H 01/09/23 10:22 Amorphous Sediment Not Reportable 01/09/23 10:22 Urine Bacteria Trace /hpf (NONE) 01/09/23 10:22 Urine Mucus None /hpf 01/09/23 10:22 Blood Type A Positive 01/09/23 09:16 Rho(D) Type Positive 01/09/23 09:16 Antibody Screen Negative 01/09/23 09:16 Vitals Last Vital Signs Temp 97.9 F 01/10/23 07:24 Pulse 85 01/10/23 07:24 Resp 17 01/10/23 07:24 BP 95/60 01/10/23 07:24 Pulse Ox 93 01/10/23 07:24 O2 Del Method Room Air 01/10/23 07:24 O2 Flow Rate 2 01/09/23 17:17 Discharge Plan Discharge Patient Disposition: Home Condition: Stable Prescriptions: New hydrocodone-acetaminophen 5-325 mg tablet 1 tab PO Q4H PRN (Reason: pain) Qty: 20 0RF acetaminophen 325 mg capsule 325 mg PO Q4H PRN (Reason: fever or pain) Qty: 60 0RF docusate sodium [Colace] 100 mg capsule 100 mg PO BID Qty: 60 0RF ferrous sulfate [Iron (ferrous sulfate)] 325 mg (65 mg iron) tablet 325 mg PO BID Qty: 60 0RF Continued furosemide 20 mg tablet 20 mg PO DAILY metoprolol succinate 25 mg tablet extended release 24 hr 12.5 mg PO BEDTIME Entresto 24-26 mg tablet 1 tab PO BID clopidogrel [Plavix] 75 mg tablet 75 mg PO DAILY 90 Days Qty: 90 1RF Discharge Orders: Discharge Order (Routine); Ordered 01/10/23 Ordered By: Pro Inman Referrals: Pro Inman MD [Physician] - 2 weeks (If D/C home with hsu catheter follow-up Sunday at the clinic for removal of catheter.) Discharge Diet: GI Soft and Soft Mechanical Discharge Activity: Limit activity as instructed Patient Instructions: Opioid Safety, Colpocleisis (GEN), Soft Diet (GEN), GI (Gastrointestinal) Soft Diet (GEN) Activity Restrictions/Additional Instructions: 1. Please call [facility] clinic on next working day to make your post-operative appointment in 2 weeks. 2. Please stay home until you come back to the clinic on first post-hospatilization check up. 3. Please follow instructions on your medications CAREFULLY. 4. If you have abdominal incision, do not cover it unless dressing is necessary because of drainage. OK to shower, but avoid bath. Leave steri-strips until they fall off. If they are still on one week after surgery, you may remove them. 5. If you had vaginal surgery or vaginal repair, Dr. Inman may instruct you to take SITZ bath. 6. Yellow, blood tinged odorous vaginal discharge is usually normal after hysterectomy or vaginal surgeries. 7. No SEXUAL INTERCOURSE, tampons, or douches until you are completely released from the post-operative care. 8. Avoid constipation by eating right and maybe using some Metamucil or Milk of Magnesia. 9. All prescription refills are given during the working hours. Please do no wait till it runs out. Call the clinic at [phone] before your medication runs out. The clinic will get in touch with your doctor to prescribe medications if necessary. 10. Please remain within 40 mile radius from our hospital because emergencies do happen now and then during the post-operative period. 11. If you have stairs at home, take one step at a time slowly and minimize the number of trips. It helps to stay in one floor for the next few days. No lifting except what you can lift by one hand until you are released from the post-operative care. 12. Driving is discouraged until you are well healed. It may be 3-4 weeks before you feel strong enough to drive. You should be able to turn and look through the rear window without pain and you should be able to push the brake pedal very hard without pain before you drive. No fast rules, but SAFETY should be your primary concern. DO NOT drive if you are on sedating medications such as narcotics. 13. Call the clinic (during working hours) to make urgent appointment or go to the Emergency room, if any of the following occurs: i. Vaginal bleeding becomes heavy, more than a period. ii. Incision becomes red and sore, or drains pus. iii. Your TEMPERATURE is over 100.4F or you have chill. iv. IV site becomes red and swollen (a little ``knot?? is usually OK) v. Persistent nausea and vomiting vi. Persistent constipation or diarrhea vii. Rash or allergic reaction to medications. Discharge Attestations PRODUCTION LINE TECHNICIAN Time Spent in Discharge Care*: greater than 30 min Coding Level of Care Code Acute Code for Chg Fwd Diagnoses
--- NOTE | 2023-01-10 10:42 | PC.CHAP ---
Pastoral Care Encounter/Spiritual Assessment Type of Contact [] Declined installer metal flooring visit [] Patient/Family/Request visit [] Outpatient visit [] Follow-up visit [] Physician referral [] Code/Alert [x] Routine visit [] Staff referral [] Actively dying [] Patient sleeping [x] Family support [] [] Out of room [] Palliative care [] [] Receiving care in room [] Pre-surgical visit [] Trauma [] Long length of stay [] ICU visit [] Other: Relational/Emotional Strength [x] Patient feels connected with others/family/visitors/staff [] Distress [] Loneliness/isolation [] Abandonment Spirituality of Patient [] Person of Marcela [] Attends Yarsanism of their Marcela [x] Believes in Prayer [] Reads Bible or Jain materials [] There are Spiritual issues to be addressed Specialized Language Instructor Interventions [x] Prayer [x] Active listening [] Non-anxious presence [] Spiritual/emotional support [] Crisis/trauma care [] Spiritual counseling [] Bereavement support [] Provided bereavement packet [] Provided Bible/devotional materials [] Provided toy/stuffed animal, coloring book to patient or family member [] Provided Communion [] Anointing/Chandler [] Salvation [] Completed spiritual assessment [] Other: Impact on Illness or Injury [] Angry [] Fearful [] Anxious [] Often cries [] Exhaustion [] Unable to work [] Unable to attend amish [] Unable to walk/stand [] Unable to read [] Unable to drive [] Unable to eat/drink [] Unable to sleep [] Unable to be with family [] Patient intubated [] Other: Summary Time spent with patient 10 min
[2023-01-10 12:06] VITALS: BP 95/60; PULSE 85; RESP 17; TEMP 36.6; O2SAT 93
--- NOTE | 2023-01-11 14:40 | ANE.PACU2 ---
Inpatient post-anesthesia follow up: Airway intact: Yes Vital signs: Temperature 97.9 F Pulse Rate 85 Respiratory Rate 17 Blood Pressure 95/60 Pulse Oximetry 93 Oxygen Delivery Me thod Room Air Oxygen Flow Rate 2 Fraction of Inspir ed Oxygen Hydration adequate: Yes Nausea and vomiting: No Pain level: 1 Mental status: Baseline
== END 2023-01-10 12:08 | disposition home or self-care (01) ==
LOC: MEDSURG 17:52
PROVIDERS: Admitting Provider Obstetrics & Gynecology; PCP Registered Nurse; Visit Provider Obstetrics & Gynecology
PROC: (CPT 57120; principal; 2023-01-09 10:15)
DX: N81.3 Complete uterovaginal prolapse (principal); I48.91 Unspecified atrial fibrillation; I11.0 Hypertensive heart disease with heart failure; I50.41 Acute combined systolic (congestive) and diastolic (congestive) heart failure; Z95.0 Presence of cardiac pacemaker
CPT/HCPCS: 57120; 36415; 36569; 36573; 36592; 80053; 81001; 85025; 85027; 86850; 86900; 87077; 87086; 87186; 93005; C1713; C1751; G0378; J1100; J1200; J1650; J1885; J2250; J2270; J2405; J2704; J3010; J3370; J3490; J7030; J7050

== ENCOUNTER 2023-01-19 10:31 | Emergency (ER) | payer MEDICARE, SELFPAY ==
[2023-01-19 11:16] VITALS: BP 143/84; PULSE 65; RESP 17; TEMP 36.6; O2SAT 97; BMI 25.5
[2023-01-19 11:34] LABS: Basophils # 0.1 10^3/uL (0.0-0.1); Eosinophils # 0.1 10^3/uL (0.0-0.8); Eosinophils % 1.7 %; Hematocrit 30.3 % (36-47); Lymphocytes # 1.1 10^3/uL (0.8-4.8); Lymphocytes % 15.3 %; Mean Corpuscular Hemoglobin 27.7 pg (27-33); Mean Corpuscular Volume 89.4 fl (85-98); Mean Platelet Volume 10.9 fL (7.4-10.4); Monocytes # 0.5 10^3/uL (0.2-0.9); Monocytes % 6.8 %; Neutrophils # 5.41 10^3/uL (1.8-7.7); Neutrophils % 74.9 %; Nucleated Red Blood Cells % 0 %; Platelet Count 288 10^3/cmm (157-399); Red Blood Count 3.39 10^6/uL (3.85-5.65); Red Cell Distribution Width 17.9 % (12.1-15.1); White Blood Count 7.21 10^3/uL (3.29-11.43)
--- NOTE | 2023-01-19 11:55 | ED_ITS ---
HPI - Female Genitourinary General: Chief complaint: Vaginal Bleeding Stated complaint: vag bleeding Time Seen by Provider: 01/19/23 11:41 Source: patient and family Mode of arrival: ambulatory Limitations: no limitations History of Present Illness: This patient comes to the emerged part by private vehicle because of concerns about persistent vaginal bleeding. Comes to the emergency department because of concerns about persistent vaginal bleeding. She apparently had a repair of a cystocele done approximately 1 week ago and is continue to have spotting. She thinks that is increased overnight. She denies any fevers or chills. She previously was taking Plavix but discontinued that prior to surgery and has not reinstituted that medication. She also takes no aspirin or other blood thinners at this time.She denies lightheadedness, syncope etc. Associated symptoms: Deny abdominal pain, nausea or syncope Review of Systems Const: Denies: fever(s) or chills Eyes: Denies: change in vision Card: Denies: chest pain, lightheadedness, syncope or pre-syncope Resp: Denies: dyspnea, productive cough or non-productive cough GI: Denies: abdominal pain, nausea, vomiting or diarrhea : Reports: vaginal bleeding Musc: Denies: neck pain, back pain, extremity pain or extremity swelling Skin/Breast: Denies: rash Psych: Denies: anxiety or depression Endo: Denies: polyuria Joo/Lymph: Reports: easy bruising PFS ED PFSH: Medical History Acute combined systolic (congestive) and diastolic (congestive) heart failure Afib Chronic lumbar pain Chronic renal failure, stage 3b Chronic urticaria Essential hypertension History of cardiac pacemaker VVIR leadless pacemaker Mitral regurgitation Pseudoaneurysm of right femoral artery Pulmonary hypertension moderate per echo Tricuspid regurgitation severe via echo Surgical History History of cardiac radiofrequency ablation History of knee surgery History of right hip replacement October 2018 Social History Smoking and tobacco status: never smoked Alcohol intake: never Substance/Drug Use: never Adopted: No Caregiver/support person: No Lives independently: No Household members: family service: No Current occupational status: retired Do you think of yourself as: Straight/Heterosexual Current gender identity: Female Physical Exam Narrative: EXAM NARRATIVE: She appears to be comfortable, alert, in no acute distress. Const: COMMON NORMALS: no acute distress, average body habitus and patient oriented x3 GENERAL APPEARANCE: cooperative ORIENTATION/CONSCIOUSNESS: Yes awake HENMT: COMMON NORMALS: normocephalic, Normal nasal mucous membranes and turbinates present and moist oral mucous membranes HEAD & SCALP: normocephalic FACE & SINUS: normal facial exam NOSE: Normal nasal mucous membranes and turbinates present Eye: COMMON NORMALS: Equal, round and reactive pupils present, EOMs intact bilaterally and conjunctivae normal CONJUNCTIVA: Yes conjunctivae normal PUPIL: Yes Equal, round and reactive pupils present Neck/C-Spine: COMMON NORMALS: full ROM, no lymphadenopathy and no JVD Chest: COMMONS NORMALS: normal inspection of the chest Resp: COMMON NORMALS: normal respiratory effort and clear to auscultation bilaterally EFFORT & INSPECTION: Yes able to speak in complete sentences AUSCULTATION: clear to auscultation bilaterally Cardio: COMMON NORMALS: no JVD GI: COMMON NORMALS: Normal to inspection, nondistended, normoactive bowel sounds present and Soft to palpation PALPATION: Yes Soft to palpation : COMMON NORMALS: Yes no CVA tenderness BLADDER/KIDNEY EXAM: Yes no CVA tenderness OTHER: Examination of the genitourinary region revealed normal appearing external genitalia. Has bleeding from the vagina which appears to be more serous and sanguinous. No clots noted. No obvious source of bleeding noted. There is no tenderness or erythema. No foul discharge no odor. Back/Pelvis: COMMON NORMALS: no CVA tenderness and thoracic and lumbar spine normal to inspection Extremity: COMMON NORMALS: normal to inspection, full ROM and no calf tenderness Neuro: COMMON NORMALS: patient oriented x3, moves all extremities, no focal motor deficits and no sensory deficits noted Psych: COMMON NORMALS: mental status grossly normal Skin: COMMON NORMALS: no rashes or lesions noted, turgor normal and no petechiae GENERAL SKIN EXAM: no rashes or lesions noted and turgor normal Course Consultations: Consultation #1: Discussed with on-call loom stop checker, Dr. Beltran and reviewed her current history and findings. Her opinion was that based upon current hemoglobin and lack of leukocytosis, fever etc. that we can follow that over the next 24 hours and if no changes or worsening of her symptoms she can follow-up with Dr. Inman on Sunday. Time: 12:46 Vital Signs: Vital signs: Vital Signs Temperature 98 F 01/19/23 11:16 Pulse Rate 65 01/19/23 11:16 Respiratory Rate 17 01/19/23 11:16 Blood Pressure 143/84 01/19/23 11:16 Pulse Oximetry 97 01/19/23 11:16 Oxygen Delivery Me thod Room Air 01/19/23 11:16 MDM - Female Medical Decision Making This patient who is now approximately 9 days from having a AMP and cystocele repair. She has been having some reddish discharge on pads on a daily basis but over the past 24 hours has had an increased amount of which she calls bloody discharge on peripads. She denies any chest pain, lightheadedness presyncope etc. She denies any history of other bleeding dyscrasias. She has held her Plavix and antiplatelet medications perioperatively and has not restarted those. Her clinical examination revealed what appeared to be a normal introitus and other external genitalia. She had no obvious active bleeding from her vaginal vault or anterior vaginal wall. She did have some serosanguineous reddish fluid present. No clots. No tenderness. No foul-smelling discharge. Her hemoglobin essentially stable. I reviewed current findings with Dr. Beltran who is on-call for ENVIRONMENTAL HEALTH TECHNOLOGIST who did not feel that this represented an case of active bleeding based upon our discussion. This most likely due to a seroma t hat has drained postoperatively. This was all reviewed with the patient in detail as well as her accompanying daughter. She is clinically stable to be managed as an outpatient with good return precautions. She was comfortable with the plan of care and stable for discharge. Lab Data I reviewed the patient's lab results. 01/19/23 11:15 01/19/23 11:15 Laboratory Results WBC 7.21 10^3/uL (3.29-11.43) 01/19/23 11:15 RBC 3.39 10^6/uL (3.85-5.65) L 01/19/23 11:15 Hgb 9.40 g/dL (11.27-16.99) L 01/19/23 11:15 Hct 30.3 % (36-47) L 01/19/23 11:15 MCV 89.4 fl (85-98) 01/19/23 11:15 MCH 27.7 pg (27-33) 01/19/23 11:15 MCHC 31.0 g/dL (30-55) 01/19/23 11:15 RDW 17.9 % (12.1-15.1) H 01/19/23 11:15 Plt Count 288 10^3/cmm (157-399) 01/19/23 11:15 MPV 10.9 fL (7.4-10.4) H 01/19/23 11:15 Neut % (Auto) 74.9 % 01/19/23 11:15 Lymph % (Auto) 15.3 % 01/19/23 11:15 [place] % (Auto) 6.8 % 01/19/23 11:15 Eos % (Auto) 1.7 % 01/19/23 11:15 Baso % (Auto) 1.0 % 01/19/23 11:15 Neut # (Auto) 5.41 10^3/uL (1.8-7.7) 01/19/23 11:15 Lymph # (Auto) 1.1 10^3/uL (0.8-4.8) 01/19/23 11:15 [place] # (Auto) 0.5 10^3/uL (0.2-0.9) 01/19/23 11:15 Eos # (Auto) 0.1 10^3/uL (0.0-0.8) 01/19/23 11:15 Baso # (Auto) 0.1 10^3/uL (0.0-0.1) 01/19/23 11:15 Nucleated RBC % (auto) 0 % 01/19/23 11:15 Nucleated RBCs # 0.0 /100WBC 01/19/23 11:15 Sodium 136 mmol/L (136-145) 01/19/23 11:15 Potassium 4.8 mmol/L (3.5-5.1) 01/19/23 11:15 Chloride 102 mmol/L (98-107) 01/19/23 11:15 Carbon Dioxide 23 mmol/L (22-29) 01/19/23 11:15 Anion Gap 15.8 (5-19) 01/19/23 11:15 BUN 16 mg/dL (8-23) 01/19/23 11:15 Creatinine 1.4 mg/dL (0.5-0.9) H 01/19/23 11:15 GFR Calculation Not Reportable 01/19/23 11:15 Glucose 103 mg/dL (65-115) 01/19/23 11:15 Calculated Osmolality 283 mOsm/kg (285-295) L 01/19/23 11:15 Calcium 8.7 mg/dL (8.5-10.5) 01/19/23 11:15 Total Bilirubin 0.6 mg/dL (0.15-1.2) 01/19/23 11:15 AST 11 U/L (0-32) 01/19/23 11:15 ALT 7 U/L (0-33) 01/19/23 11:15 Alkaline Phosphatase 125 U/L (35-105) H 01/19/23 11:15 Total Protein 6.9 g/dL (6.6-8.7) 01/19/23 11:15 Albumin 3.9 g/dL (3.5-5.2) 01/19/23 11:15 Globulin 3.0 g/dL (1.3-4.6) 01/19/23 11:15 No radiology studies performed this visit Discharge Plan Discharge Patient Disposition: Home Clinical Impression: Seroma Condition: Stable Prescriptions: No Action furosemide 20 mg tablet 20 mg PO DAILY metoprolol succinate 25 mg tablet extended release 24 hr 12.5 mg PO BEDTIME Entresto 24-26 mg tablet 1 tab PO BID clopidogrel [Plavix] 75 mg tablet 75 mg PO DAILY 90 Days Qty: 90 1RF Rx Instructions: ON HOLD ferrous sulfate [Iron (ferrous sulfate)] 325 mg (65 mg iron) tablet 325 mg PO BID Qty: 60 0RF docusate sodium [Colace] 100 mg capsule 100 mg PO BID Qty: 60 0RF acetaminophen 325 mg capsule 325 mg PO Q4H PRN (Reason: fever or pain) Qty: 60 0RF Discharge Orders: Discharge ED (Routine); Ordered 01/19/23 Ordered By: Pro Greene Referrals: Monica Castro, OPTICAL LABORATORY TECHNICIAN [Primary Care Provider] - Discharge Diet: Usual diet Discharge Activity: Increase activity as tolerated Patient Instructions: Opioid Safety, Pain Management Activity Restrictions/Additional Instructions: As we discussed while you are in the emergency department it appears most likely that you are having drainage of fluid from a seroma which is a collection of clotted blood and other fluids postoperatively. This does not represent active bleeding in this situation. We do not recommend that you restart your Plavix or aspirin or any other anticoagulants at this time until you see Dr. Inman. Should your symptoms worsen over the weekend at any time you are welcome to return to the emergency department otherwise follow-up with Dr. Inman early next week as scheduled. Coding Level of Care Code ED Water Quality Tester for Jorge Hawkins
[2023-01-19 12:00] LABS: Alanine Aminotransferase 7 U/L (0-33); Albumin Level 3.9 g/dL (3.5-5.2); Alkaline Phosphatase 125 U/L (35-105); Anion Gap 15.8 (5-19); Aspartate Amino Transferase 11 U/L (0-32); Blood Urea Nitrogen 16 mg/dL (8-23); Calcium 8.7 mg/dL (8.5-10.5); Carbon Dioxide 23 mmol/L (22-29); Chloride 102 mmol/L (98-107); Glucose 103 mg/dL (65-115); Osmolality Calculated 283 mOsm/kg (285-295); Potassium 4.8 mmol/L (3.5-5.1); Sodium 136 mmol/L (136-145); Total Bilirubin 0.6 mg/dL (0.15-1.2); Total Protein 6.9 g/dL (6.6-8.7)
[2023-01-19 14:10] VITALS: BP 143/84; PULSE 65; RESP 17; O2SAT 97
== END 2023-01-19 14:12 | disposition home or self-care (01) ==
PROVIDERS: Family Medicine; Emergency Provider Emergency Medicine; PCP Registered Nurse
DX: N99.842 Postprocedural seroma of a genitourinary system organ or structure following a genitourinary system procedure (principal); I13.0 Hypertensive heart and chronic kidney disease with heart failure and stage 1 through stage 4 chronic kidney disease, or unspecified chronic kidney disease; N18.32 Chronic kidney disease, stage 3b; I50.41 Acute combined systolic (congestive) and diastolic (congestive) heart failure; Z95.0 Presence of cardiac pacemaker
CPT/HCPCS: 36415; 80053; 85025; 99283